=== PATIENT | female | born 1995 | race American Indian/Alaskan Native ===

== ENCOUNTER 2017-05-24 20:44 | Inpatient (IN) | payer BC ==
--- NOTE | 2017-05-24 22:16 | ED PDOC ---
HPI: Fever Fever Onset Was: 05/22/17 Have you had recent travel within the past 21 days to any of the following countries: [place], [place], [place] or [place]?: Yes Other Location:: [facility] Does Patient Have Hx Of Febrile Seizures: No Did The Patient Have A Seizure Today: No Symptoms Associated With Fever: Other (chills). denies: Vomiting, Diarrhea Additional Comments: 21 year old female with no pertinent medical history presents to the ED with complaints of a fever and chills that started 3x days ago. She reports that she recently travelled to the [facility] 10x days ago where she had liposuction and injections in her abdomen, buttocks, arms, and breasts. She reports taking antibiotics or the past 7x days. She denies having nausea, vomiting, chest pain, and shortness of breath. Past Medical History Reviewed: Historical Data, Nursing Documentation, Vital Signs Vital Signs: Last Vital Signs Temp 98.5 F 05/24/17 21:03 Pulse 97 H 05/24/17 21:03 Resp 18 05/24/17 21:03 BP 116/68 05/24/17 21:03 Pulse Ox 100 05/24/17 22:20 - Medical History PMH: No Chronic Diseases - Surgical History Other surgeries: liposuction, injections 10x days ago - Family History Family History: States: No Known Family Hx - Social History Alcohol: Social Drugs: Denies - Allergies Allergies/Adverse Reactions: Allergies Allergy/AdvReac Type Severity Reaction Status Date / Time No Known Allergies Allergy Verified 05/24/17 21:02 Review of Systems ROS Statement: Except As Marked, All Systems Reviewed And Found Negative Constitutional: Positive for: Fever, Chills Cardiovascular: Negative for: Chest Pain Respiratory: Negative for: Shortness of Breath Gastrointestinal: Negative for: Nausea, Vomiting, Abdominal Pain Physical Exam - Reviewed Nursing Documentation Reviewed: Yes Vital Signs Reviewed: Yes - Physical Exam Appears: Positive for: Well, Non-toxic, No Acute Distress Head Exam: Positive for: ATRAUMATIC, NORMOCEPHALIC Skin: Positive for: Normal Color, Warm, Dry Cardiovascular/Chest: Positive for: Regular Rate, Rhythm Respiratory: Positive for: Normal Breath Sounds Gastrointestinal/Abdominal: Positive for: Soft, Other (surgical sites healing. granulation of tissue to a few sites. no erythema, no abscess, no fluctuance, no induration.). Negative for: Tenderness Neurologic/Psych: Positive for: Alert, Oriented (3x) - Laboratory Results Result Diagrams: 05/24/17 22:20 05/24/17 22:20 - ECG O2 Sat by Pulse Oximetry: 100 (RA) Pulse Ox Interpretation: Normal Medical Decision Making Medical Decision Makin:12 Initial impression: fever in post-operative patient. Initial plan: * BMP * CBC * motrin tab 600mg PO * reevaluation 2300 Pt. w/ elevated WBC w/ neutrophilic predominance as well as anemia. Will admit to hospitalist service. Abx ordered. Scribe Attestation: Documented by Vianca Paredes, acting as a scribe for Todd Nunez MD. Provider Scribe Attestation: All medical record entries made by the Scribe were at my direction and personally dictated by me. I have reviewed the chart and agree that the record accurately reflects my personal performance of the history, physical exam, medical decision making, and the department course for this patient. I have also personally directed, reviewed, and agree with the discharge instructions and disposition. Disposition - Clinical Impression Clinical Impression: Fever, Leukocytosis, Anemia - Disposition Disposition Time: 23:00 Condition: STABLE
[2017-05-24 22:43] LABS: BASO % 0.2 % (0.0-2.0); EOS # 0.1 K/uL (0.0-0.7); EOS % 0.7 % (0.0-4.0); HEMATOCRIT 23.8 % (34.0-47.0); LYMPH # 1.8 K/uL (1.0-4.3); LYMPH % 9.5 % (20.0-40.0); MEAN CELL VOLUME 88.6 fl (81.0-99.0); MEAN CORPUSCULAR HEMOGLOBIN 29.5 pg (27.0-31.0); MEAN CORPUSCULAR HGB CONC 33.3 g/dL (33.0-37.0); MEAN PLATELET VOLUME 6.8 fl (7.2-11.7); MONO # 1.5 K/uL (0.0-0.8); MONO % 7.5 % (0.0-10.0); NEUT % 82.1 % (50.0-75.0); PLATELET COUNT 300 K/uL (130-400); RED CELL DISTRIBUTION WIDTH 14.3 % (11.5-14.5); WHITE BLOOD COUNT 19.5 K/uL (4.8-10.8)
[2017-05-24 22:49] LABS: BLOOD UREA NITROGEN 8 mg/dl (7-17); CALCIUM 8.4 mg/dL (8.4-10.2); CARBON DIOXIDE 26 mmol/L (22-30); CHLORIDE 101 mmol/L (98-107); GFR AFRICAN-AMERICAN > 60; GLUCOSE,RANDOM 95 mg/dL (65-105); POTASSIUM 3.8 MMOL/L (3.6-5.0); SODIUM 137 mmol/l (132-148)
[2017-05-24 23:10] LABS: EOSINOPHIL 1 % (0-7); NEUTROPHIL 84 % (42-75); REACTIVE LYMPHOCYTES 1 % (0-0); TOTAL CELLS COUNTED 100
[2017-05-24] MEDS ORDERED: Sodium Chloride 0.9% 1,000 ML IV STA (23:13)
[2017-05-24] MEDS ORDERED: Piperacillin/Tazobact 3.375 GM in Sodium Chloride 0.9% 100 ML IVPB STA (23:43)
--- NOTE | 2017-05-24 23:59 | CP.PCM.HP ---
History of Present Illness - History of Present Illness History of Present Illness: Fever, malaise HPI: This is a 21 y/o female with no medical conditions who comes in with fever/ malaise/n/v. Patient had gone to the [facility] just about 10 days ago, where she had plastic surgery performed, including liposuction and injections in her abdomen, buttocks, arms, and also had breasts implants. She was discharged on 7 days of LVQ post op, just as prophylaxis, not for infection. As far as she was aware, she had no complications during/after procedure in [place] No significant blood loss either as far as she knew, though she is anemic on presentation. She states her symptoms started about 3 days ago, and began to get worse. She denies any worsening pain/redness at any surgical site. However, she notes one small site on R hip which has opened up and had some bleeding. Denies any CP, SOB, cough or diarrhea. ROS: 14 systems reviewed, negative other than HPI MHx: None SHx: Plastic surgery -- liposuction, implants (various areas) Allergies: NKDA Medications: as per med rec Family Hx: No relevant findings Social Hx: Lives with family, no significant EtOH or tobacco Present on Admission - Present on Admission Any Indicators Present on Admission: No Past Patient History - Past Social History Alcohol: Social Drugs: Denies - PSYCHIATRIC Hx Substance Use: No - SURGICAL HISTORY Other/Comment: Lipo suction to b/l arms, buttocks and abdomen Meds Allergies/Adverse Reactions: Allergies Allergy/AdvReac Type Severity Reaction Status Date / Time No Known Allergies Allergy Verified 05/24/17 21:02 Physical Exam - Constitutional Appears: Toxic - Head Exam Head Exam: ATRAUMATIC, NORMOCEPHALIC - Eye Exam Eye Exam: EOMI, PERRL - ENT Exam ENT Exam: Mucous Membranes Dry - Respiratory Exam Respiratory Exam: Clear to Auscultation Bilateral, NORMAL BREATHING PATTERN - Cardiovascular Exam Cardiovascular Exam: Tachycardia, REGULAR RHYTHM, +S1, +S2 - GI/Abdominal Exam GI & Abdominal Exam: Normal Bowel Sounds, Soft - Extremities Exam Extremities exam: Positive for: full ROM Additional comments: R hip area with one small 2-3 cm wound with some bleeding, ? drainage - Neurological Exam Neurological exam: Alert, CN II-XII Intact, Oriented x3 - Psychiatric Exam Psychiatric exam: Normal Affect, Normal Mood - Skin Skin Exam: Dry, Warm Results - Vital Signs Recent Vital Signs: Last Vital Signs Temp 98.5 F 05/24/17 21:03 Pulse 97 H 05/24/17 21:03 Resp 18 05/24/17 21:03 BP 116/68 05/24/17 21:03 Pulse Ox 100 05/24/17 22:20 - Labs Result Diagrams: 05/24/17 22:20 05/24/17 22:20 Labs: Laboratory Results - last 24 hr 05/24/17 05/24/17 05/24/17 22:20 22:20 23:14 WBC 19.5 H RBC 2.69 L Hgb 7.9 L Hct 23.8 L MCV 88.6 MCH 29.5 MCHC 33.3 RDW 14.3 Plt Count 300 MPV 6.8 L Neut % (Auto) 82.1 H Lymph % (Auto) 9.5 L [place] % (Auto) 7.5 Eos % (Auto) 0.7 Baso % (Auto) 0.2 Neut # 16.0 H Lymph # 1.8 [place] # 1.5 H Eos # 0.1 Baso # 0.0 Neutrophils % (Manual) 84 H Band Neutrophils % 1 Lymphocytes % (Manual) 6 L Reactive Lymphs % 1 H Monocytes % (Manual) 7 Eosinophils % (Manual) 1 Platelet Estimate Normal Poikilocytosis (manual Slight Anisocytosis (manual) Slight Tear Drop Cells Slight Sodium 137 Potassium 3.8 Chloride 101 Carbon Dioxide 26 Anion Gap 13 BUN 8 Creatinine 0.7 Est GFR ( Amer) > 60 Est GFR (Non-Af Amer) > 60 Random Glucose 95 Lactic Acid 2.1 Calcium 8.4 - Imaging and Cardiology Chest x-ray Status: Image reviewed by me (b/l breast implants noted; no consolidation or effusion.) Assessment & Plan (1) Fever Assessment and Plan: 21 y/o with no med conditions but recent travel/plastic surgery presenting with likely sepsis, though no clearly obvious source aside from R hip wound. 1) Sepsis -Continue IV Zosyn 3.375 q6h; given ?wound infection post op, will start Vanco 1 g q12h IV as well -IVF -Tylenol for pain/fever -Zofran IV for n/w -f/u Cultures -If no improvement or worsening in condition, consider CT to image surgical sites for possible abscess 2) Anemia -- possibly blood loss from surgery vs. from menstrual period -Full anemia w/u ordered; Ferritin likely to be elevated due to current infection -Type and screen ordered 3) DVT PPx -- SCDs only for now Status: Acute (2) Anemia Status: Acute (3) DVT prophylaxis Status: Acute
[2017-05-25 00:25] LABS: RBC URINE 1 /hpf (0-3); URINE BACTERIA RARE (<OCC); URINE BILIRUBIN NEGATIVE (NEGATIVE); URINE BLOOD NEGATIVE (NEGATIVE); URINE COLOR STRAW (YELLOW); URINE GLUCOSE (UA) NEG (Normal); URINE KETONE NEGATIVE (NEGATIVE); URINE LEUKOCYTE ESTERASE NEG Leu/uL (Negative); URINE PROTEIN NEGATIVE (NEGATIVE); URINE UROBILINOGEN 0.2-1.0 mg/dL (0.2-1.0); WBC URINE < 1 /hpf (0-5)
[2017-05-25] MEDS: Sodium Chloride 0.9% 1,000 ML IV SCH ×5 (02:30→23:33)
[2017-05-25] MEDS ORDERED: Piperacill/Tazo 3.375gm in Dex 3.375 GM/50 ML BAG IVPB SCH (04:00)
[2017-05-25 06:15] LABS: HEMATOCRIT 21.4 % (34.0-47.0); MEAN CELL VOLUME 89.5 fl (81.0-99.0); MEAN CORPUSCULAR HEMOGLOBIN 29.8 pg (27.0-31.0); MEAN CORPUSCULAR HGB CONC 33.3 g/dL (33.0-37.0); WHITE BLOOD COUNT 17.4 K/uL (4.8-10.8)
[2017-05-25 06:22] LABS: BLOOD UREA NITROGEN 7 mg/dl (7-17); CALCIUM 8.1 mg/dL (8.4-10.2); CARBON DIOXIDE 27 mmol/L (22-30); CHLORIDE 106 mmol/L (98-107); GFR AFRICAN-AMERICAN > 60; GLUCOSE,RANDOM 122 mg/dL (65-105); SODIUM 140 mmol/l (132-148)
[2017-05-25] MEDS: Piperacill/Tazo 3.375gm in Dex 3.375 GM/50 ML BAG IVPB SCH ×4 (06:26→18:31)
[2017-05-25 06:28] LABS: IRON 12 ug/dL (37-170); RETIC% 5.3 % (0.5-1.5)
[2017-05-25 06:52] LABS: THYROID STIMULATING HORMONE 3.05 mIU/ML (0.46-4.68)
--- NOTE | 2017-05-25 09:27 | CP.PCM.PN ---
Subjective - Date & Time of Evaluation Date of Evaluation: 05/25/17 Time of Evaluation: 09:15 - Subjective Subjective: Pt remains febrile complains of right buttock pain sl discomfort at incision site of liposuction no CP no SOB no N/V no abd pain Objective - Vital Signs/Intake and Output Vital Signs (last 24 hours): Temp Pulse Resp BP Pulse Ox 100.5 F H 110 H 18 105/56 L 100 05/25/17 09:22 05/25/17 08:15 05/25/17 08:15 05/25/17 08:15 05/25/17 08:15 Intake and Output: 05/25/17 05/25/17 06:59 18:59 Intake Total 840 Balance 840 - Medications Medications: Current Medications Acetaminophen (Tylenol 325mg Tab) 650 mg PO Q6 PRN PRN Reason: Fever >100.4 F Last Admin: 05/25/17 09:22 Dose: 650 mg Acetaminophen (Tylenol 325mg Tab) 650 mg PO Q6 PRN PRN Reason: Pain, Mild (1-3) Vancomycin HCl 1 gm/ Sodium (Chloride) 250 mls @ 166.667 mls/hr IVPB Q12H [facility] Last Admin: 05/25/17 02:30 Dose: 166.667 mls/hr Sodium Chloride (Sodium Chloride 0.9%) 1,000 mls @ 100 mls/hr IV .Q10H [facility] Stop: 05/25/17 20:59 Last Admin: 05/25/17 02:30 Dose: 100 mls/hr Piperacillin Sod/Tazobactam Sod (Zosyn 3.375 Gm Iv Premix) 3.375 gm in 50 mls @ 50 mls/hr IVPB 0100,0700,1300,1900 [facility] Last Admin: 05/25/17 06:26 Dose: 50 mls/hr Ondansetron HCl (Zofran Inj) 4 mg IVP Q6 PRN PRN Reason: Nausea/Vomiting - Labs Labs: 05/25/17 05:00 05/25/17 05:00 - Constitutional Appears: No Acute Distress - Head Exam Head Exam: NORMAL INSPECTION, NORMOCEPHALIC - Eye Exam Eye Exam: EOMI, Normal appearance, PERRL Pupil Exam: NORMAL ACCOMODATION - ENT Exam ENT Exam: Mucous Membranes Moist, Normal External Ear Exam - Neck Exam Neck Exam: Full ROM. absent: Meningismus - Respiratory Exam Respiratory Exam: NORMAL BREATHING PATTERN. absent: Respiratory Distress - Cardiovascular Exam Cardiovascular Exam: Tachycardia, REGULAR RHYTHM, +S1, +S2 - GI/Abdominal Exam GI & Abdominal Exam: Soft, Normal Bowel Sounds. absent: Tenderness - Extremities Exam Extremities Exam: Full ROM, Normal Capillary Refill. absent: Calf Tenderness, Pedal Edema - Back Exam Back Exam: Full ROM, NORMAL INSPECTION. absent: CVA tenderness (L), CVA tenderness (R) Additional comments: tenderness , induration right buttock extending to upper thigh - Neurological Exam Neurological Exam: Alert, Awake, CN II-XII Intact, Normal Gait, Oriented x3 Neuro motor strength exam: Left Upper Extremity: 5, Right Upper Extremity: 5, Left Lower Extremity: 5, Right Lower Extremity: 5 - Psychiatric Exam Psychiatric exam: Normal Affect, Normal Mood - Skin Skin Exam: Dry, Normal Color, Warm Assessment and Plan (1) Cellulitis of buttock, right Status: Acute (2) Postoperative anemia due to acute blood loss Status: Acute (3) DVT prophylaxis Status: Acute - Assessment and Plan (Free Text) Assessment: 21 y/o lady , s/p recent Liposuction and Buttock Fat Transfer procedure and Breast augmentation done in the [place] 10 days ago , came bec of fever and generalized malaise. (1) Sepsis sec to Cellulitis of buttock, right Status: Acute Pt came in febrile, tachycardic, WBC CT =19k IVF hydration Pt started on IV Zosyn and Vanco ID consult: Dr Zambrano CT of pelvis : findings consistent with cellulitis, no definite abscess (2) Postoperative anemia due to acute blood loss Status: Acute Hgb=7.1 will transfuse 1 unit PRBC will also given Iron supplement (3) DVT prophylaxis Status: Acute Lovenox
[2017-05-25] MEDS ORDERED: Iohexol 300 100 ML IJ ONE (10:13)
[2017-05-25] MEDS ORDERED: Sodium Chloride 0.9% 50 ML IV ONE (10:13)
--- NOTE | 2017-05-25 11:11 | CT ---
PROCEDURE: CT pelvis HISTORY: r/o abscess, post fat implantation buttocks, COMPARISON: Not available TECHNIQUE: 2.5 mm contiguous axial sections were acquired through the pelvis. Contrast administered: 95 cc Omnipaque 300 Total exam DLP: 1655.32 mGy-cm FINDINGS: There are at post implant seen within the gluteus ugo muscle bilaterally. The gluteus medius and minimus muscles are unremarkable. There is ill-defined fluid attenuation within the deep subcutaneous fat of the right medial gluteus region extending to the proximal medial right thigh. There is no carmen localized abscess identified. There is thickening of the overlying skin. Findings are consistent with cellulitis without evidence of carmen abscess at this time. At the level of the iliac crests, there is band-like low attenuation within the subcutaneous soft tissues posteriorly extending to the flanks bilaterally, right greater than left. There is also some stranding of the subcutaneous soft tissue anteriorly, across the entire width. These findings most likely represent scar tissue of indeterminate origin. Cannot rule out inflammatory process, however. Please correlate clinically. The internal contents of the pelvis are grossly normal. The uterus and urinary bladder are normal in appearance. There is no ascites. There is no lymphadenopathy. No abnormal bowel loops are identified. IMPRESSION: No evidence of abscess. Cellulitis right gluteal region medially extending to medial right thigh. Very small ill-defined fluid collections throughout the subcutaneous fat in the affected region. Fatty implants seen within gluteus ugo muscle bilaterally. Bandlike low-attenuation across the width of the posterior subcutaneous soft tissues immediately beneath the skin at the level of the iliac crests, possibly an incision site. This is greater on the right side than on the left side. There is also mild stranding of the subcutaneous fat anteriorly across the entire width, again at the level of the iliac crests. Please correlate clinically.
--- NOTE | 2017-05-25 12:21 | CP.PCM.CON ---
History of Present Illness - History of Present Illness History of Present Illness: 21 y/o female with no medical conditions who comes in with fever/malaise/n/v. Patient had gone to the [facility] just about 10 days ago, where she had plastic surgery performed, including liposuction and injections in her abdomen, buttocks, arms, and also had breasts implants. She was discharged on 7 days of LVQ post op, just as prophylaxis, not for infection. As far as she was aware, she had no complications during/after procedure in [place]. No significant blood loss either as far as she knew, though she is anemic on presentation. She states her symptoms started about 3 days ago, and began to get worse. She denies any worsening pain/redness at any surgical site. However, she notes one small site on R hip which has opened up and had some bleeding. Denies any CP, SOB, cough or diarrhea. SHx: Plastic surgery -- liposuction, implants (various areas) Allergies: NKDA Family Hx: No relevant findings Social Hx: Lives with family, no significant EtOH or tobacco Review of Systems - Constitutional Constitutional: As Per HPI, Chills, Weakness - EENT Eyes: absent: As Per HPI, Blind Spots, Blurred Vision, Change in Vision, Decreased Night Vision, Diplopia, Discharge, Dry Eye, Exophthalmos, Floaters, Irritation, Itchy Eyes, Loss of Peripheral Vision, Pain, Photophobia, Requires Corrective Lenses, Sees Flashes, Spots in Vision, Tunnel Vision, Other Visual Disturbances, Loss of Vision, Other Ears: absent: As Per HPI, Decreased Hearing, Ear Discharge, Ear Pain, Tinnitus, Abnormal Hearing, Disequilibrium, Dizziness, Other Nose/Mouth/Throat: absent: As Per HPI, Epistaxis, Nasal Congestion, Nasal Discharge, Nasal Obstruction, Nasal Trauma, Nose Pain, Post Nasal Drip, Sinus Pain, Sinus Pressure, Bleeding Gums, Change in Voice, Dental Pain, Dry Mouth, Dysphagia, Halitosis, Hoarsness, Lip Swelling, Mouth Lesions, Mouth Pain, Odynophagia, Sore Throat, Throat Swelling, Tongue Swelling, Facial Pain, Neck Pain, Neck Mass, Other - Breasts Breasts: absent: As Per HPI, Change in Shape, Mass, Pain, Nipple Discharge, Nipple Inversion, Skin Changes, Swelling, Other - Cardiovascular Cardiovascular: absent: As Per HPI, Acrocyanosis, Chest Pain, Chest Pain at Rest , Chest Pain with Activity, Claudication, Diaphoresis, Dyspnea, Dyspnea on Exertion, Edema, Irregular Heart Rhythm, Pain Radiating to Arm/Neck/Jaw, Leg Edema, Leg Ulcers, Lightheadedness, Orthopnea, Palpitations, Paroxysmal Nocturnal Dyspnea, Pedal Edema, Radiating Pain, Rapid Heart Rate, Slow Heart Rate, Syncope, Other - Respiratory Respiratory: absent: As Per HPI, Cough, Dyspnea, Hemoptysis, Dyspnea on Exertion , Wheezing, Snoring, Stridor, Pain on Inspiration, Chest Congestion, Excessive Mucous Production, Change in Mucous Color, Pain with Coughing, Other - Gastrointestinal Gastrointestinal: absent: As Per HPI, Abdominal Pain, Belching, Bloating, Change in Bowel Habits, Change in Stool Character, Coffee Ground Emesis, Constipation, Cramping, Diarrhea, Dyspepsia, Dysphagia, Early Satiety, Excessive Flatus, Fecal Incontinence, Heartburn, Hematemesis, Hematochezia, Loose Stools, Melena, Nausea, Odynophagia, Temesmus, Vomiting, Other - Genitourinary Genitourinary: absent: As Per HPI, Change in Urinary Stream, Difficulty Urinating, Dysuria, Flank Pain, Hematuria, Pyuria, Nocturia, Urinary Incontinence, Urinary Frequency, Urinary Hesitance, Urinary Urgency, Voiding Freq/Small Amts, Freq UTI, Hx Renal/Bladder Calculi, Hx /Renal Surgery, Bladder Distension, Other - Reproductive: Female Reproductive:Female: absent: As Per HPI, Amenorrhea, Amenorrhea/ Control, Currently Menstual, Cycle <21 Days, Cycle >35 Days, Cycle Variable, Menses 1-7 Days, Menses >/= 8 Days, Menses Variable, Cycle > 4 Weeks Between, No Menses for 6 Months, Heavy Menses, Light Menses, Normal Menses, Spotting Between Cycles , S/P Hysterectomy, Menopausal, Post Menopausal, Premenarche, Abnormal Vaginal Bleeding, Dysmenorrhea, Dyspareunia, Genital Lesions, Genital Pruritis, Pelvic Pain, Prolapse Symptoms, Sexual Dysfunction, Vaginal Discharge, Vaginal Dryness , Vaginal Odor, Vaginal Pruritis, Other - Menstruation Menstruation: absent: As Per HPI, Amenorrhea, Amenorrhea/ Control, Currently Menstual, Cycle <21 Days, Cycle >35 Days, Cycle Variable, Menses 1-7 Days, Menses >/= 8 Days, Menses Variable, Cycle > 4 Weeks Between, No Menses for 6 Months, Heavy Menses, Light Menses, Normal Menses, Spotting Between Cycles , S/P Hysterectomy, Menopausal, Post Menopausal, Premenarche, Abnormal Vaginal Bleeding, Dysmenorrhea, Other - Musculoskeletal Musculoskeletal: As Per HPI - Integumentary Integumentary: As Per HPI - Neurological Neurological: absent: As Per HPI, Abnormal Gait, Abnormal Hearing, Abnormal Movements, Abnormal Speech, Behavioral Changes, Burning Sensations, Confusion, Convulsions, Disequilibrium, Dizziness, Numbness, Focal Weakness, Frequent Falls , Headaches, Lack of Coordination, Loss of Vision, Memory Loss, Paresthesias, Radicular Pain, Restless Legs, Sensory Deficit, Syncope, Tingling, Tremor, Vertigo, Weakness, Other Visual Disturbances, Other - Psychiatric Psychiatric: absent: As Per HPI, Abnormal Sleep Pattern, Anhedonia, Anxiety, Auditory Hallucinations, Behavioral Changes, Change in Appetite, Change in Libido, Confusion, Depression, Difficulty Concentrating, Hallucinations, Homicidal Ideation, Hopelessness, Irritability, Memory Loss, Mood Swings, Panic Attacks, Paranoia, Suicidal Ideation, Visual Hallucinations, Tactile Hallucinations, Other - Endocrine Endocrine: absent: As Per HPI, Change in Body Appearance, Change in Libido, Cold Intolorance, Deepening of Voice, Excessive Sweating, Fatigue, Flushing, Heat Intolorance, Increase in Ring/Shoe/Hat Size, Palpitations, Polydipsia, Polyphagia, Polyuria, Other - Hematologic/Lymphatic Hematologic: absent: As Per HPI, Easy Bleeding, Easy Bruising, Lymphadenopathy, Other Past Patient History - Past Medical History & Family History Past Medical History?: No - Past Social History Smoking Status: Never Smoked - HEMATOLOGICAL/ONCOLOGICAL Hx AIDS: No Hx Human Immunodeficiency Virus (HIV): No - MUSCULOSKELETAL/RHEUMATOLOGICAL Hx Falls: No - PSYCHIATRIC Hx Substance Use: No - SURGICAL HISTORY Hx Surgeries: Yes Other/Comment: Lipo suction to b/l arms, buttocks and abdomen - ANESTHESIA Hx Anesthesia: Yes Hx Anesthesia Reactions: No Hx Malignant Hyperthermia: No Meds Allergies/Adverse Reactions: Allergies Allergy/AdvReac Type Severity Reaction Status Date / Time No Known Allergies Allergy Verified 05/24/17 21:02 - Medications Medications: Current Medications Acetaminophen (Tylenol 325mg Tab) 650 mg PO Q6 PRN PRN Reason: Fever >100.4 F Last Admin: 05/25/17 09:22 Dose: 650 mg Acetaminophen (Tylenol 325mg Tab) 650 mg PO Q6 PRN PRN Reason: Pain, Mild (1-3) Vancomycin HCl 1 gm/ Sodium (Chloride) 250 mls @ 166.667 mls/hr IVPB Q12H [facility] Last Admin: 05/25/17 02:30 Dose: 166.667 mls/hr Sodium Chloride (Sodium Chloride 0.9%) 1,000 mls @ 100 mls/hr IV .Q10H [facility] Stop: 05/25/17 20:59 Last Admin: 05/25/17 02:30 Dose: 100 mls/hr Piperacillin Sod/Tazobactam Sod (Zosyn 3.375 Gm Iv Premix) 3.375 gm in 50 mls @ 50 mls/hr IVPB 0100,0700,1300,1900 [facility] Last Admin: 05/25/17 06:26 Dose: 50 mls/hr Ondansetron HCl (Zofran Inj) 4 mg IVP Q6 PRN PRN Reason: Nausea/Vomiting Physical Exam - Constitutional Appears: Toxic - Head Exam Head Exam: NORMOCEPHALIC - Eye Exam Eye Exam: PERRL Pupil Exam: NORMAL ACCOMODATION - ENT Exam ENT Exam: Mucous Membranes Moist - Neck Exam Neck exam: Positive for: Normal Inspection - Respiratory Exam Respiratory Exam: Clear to Auscultation Bilateral, NORMAL BREATHING PATTERN - Cardiovascular Exam Cardiovascular Exam: REGULAR RHYTHM, +S1, +S2 - GI/Abdominal Exam GI & Abdominal Exam: Normal Bowel Sounds, Soft. absent: Tenderness - Rectal Exam Rectal Exam: Deferred - Exam Exam: NORMAL INSPECTION - Extremities Exam Extremities exam: Positive for: normal inspection - Back Exam Back exam: absent: CVA tenderness (L), CVA tenderness (R) - Neurological Exam Neurological exam: Alert, CN II-XII Intact, Oriented x3 - Psychiatric Exam Psychiatric exam: Anxious - Skin Skin Exam: Dry Additional comments: areas of induration/ tenderness over inner buttock area bilat Results - Vital Signs Recent Vital Signs: Last Vital Signs Temp 99.3 F 05/25/17 12:03 Pulse 110 H 05/25/17 12:03 Resp 18 05/25/17 12:03 BP 110/64 05/25/17 12:03 Pulse Ox 100 05/25/17 12:03 - Labs Result Diagrams: 05/25/17 19:14 05/25/17 05:00 Labs: Laboratory Results - last 24 hr 05/25/17 09:25 Blood Type O NEGATIVE Antibody Screen Negative Crossmatch See Detail BBK History Checked Patient has bt Assessment & Plan (1) Anemia Status: Acute (2) Cellulitis of buttock, right Status: Acute (3) Fever Status: Acute (4) Leukocytosis Status: Acute (5) Postoperative anemia due to acute blood loss Status: Acute - Assessment and Plan (Free Text) Assessment: severe cellulitis r/o infected hematoma r/o staph, strep , anaerobes , Mycobacterium abscessus no abscess as per CT may need surgical drainage if no improvement in 24-48 h agree with Vanco/ zosyn
--- NOTE | 2017-05-25 14:06 | RAD ---
HISTORY: fever, leukocytosis COMPARISON: No prior. TECHNIQUE: Chest PA and lateral FINDINGS: LUNGS: No active pulmonary disease. PLEURA: No significant pleural effusion identified. No pneumothorax apparent. CARDIOVASCULAR: Normal. OSSEOUS STRUCTURES: No significant abnormalities. VISUALIZED UPPER ABDOMEN: Normal. OTHER FINDINGS: None. IMPRESSION: No active disease.
[2017-05-25] MEDS ORDERED: Oxycodone/Acetaminophen 5/325 mg Tab PO PRN (15:29)
[2017-05-25] MEDS: HYDROmorphone 0.5 mg/0.5 ml ISec IVP PRN ×2 (16:12→20:40)
[2017-05-25 19:27] LABS: HEMATOCRIT 23.2 % (34.0-47.0); MEAN CELL VOLUME 87.9 fl (81.0-99.0); MEAN CORPUSCULAR HEMOGLOBIN 29.5 pg (27.0-31.0); MEAN CORPUSCULAR HGB CONC 33.6 g/dL (33.0-37.0); RED CELL DISTRIBUTION WIDTH 14.1 % (11.5-14.5); WHITE BLOOD COUNT 19.5 K/uL (4.8-10.8)
[2017-05-26] MEDS: Piperacill/Tazo 3.375gm in Dex 3.375 GM/50 ML BAG IVPB SCH ×4 (00:23→18:22)
[2017-05-26] MEDS: HYDROmorphone 0.5 mg/0.5 ml ISec IVP PRN ×5 (00:29→21:48)
[2017-05-26 06:32] LABS: BASO % 0.2 % (0.0-2.0); EOS # 0.2 K/uL (0.0-0.7); HEMATOCRIT 23.4 % (34.0-47.0); LYMPH # 1.4 K/uL (1.0-4.3); LYMPH % 8.3 % (20.0-40.0); MEAN CELL VOLUME 88.4 fl (81.0-99.0); MEAN CORPUSCULAR HEMOGLOBIN 29.8 pg (27.0-31.0); MEAN CORPUSCULAR HGB CONC 33.7 g/dL (33.0-37.0); MEAN PLATELET VOLUME 7.1 fl (7.2-11.7); MONO # 1.6 K/uL (0.0-0.8); MONO % 9.8 % (0.0-10.0); NEUT # 13.4 K/uL (1.8-7.0); NEUT % 80.7 % (50.0-75.0); RED CELL DISTRIBUTION WIDTH 14.1 % (11.5-14.5); WHITE BLOOD COUNT 16.6 K/uL (4.8-10.8)
[2017-05-26 06:35] LABS: BLOOD UREA NITROGEN 5 mg/dl (7-17); CALCIUM 8.2 mg/dL (8.4-10.2); CARBON DIOXIDE 29 mmol/L (22-30); CHLORIDE 104 mmol/L (98-107); GFR AFRICAN-AMERICAN > 60; GLUCOSE,RANDOM 110 mg/dL (65-105); SODIUM 139 mmol/l (132-148)
[2017-05-26] MEDS: Enoxaparin 40 mg Syringe SC SCH (08:36)
--- NOTE | 2017-05-26 10:21 | CP.PCM.PN ---
Subjective - Date & Time of Evaluation Date of Evaluation: 05/26/17 Time of Evaluation: 10:00 - Subjective Subjective: Still febrile but lower grade has sl headache when she gets pain and fever no neck rigidity no Focal neuro deficit no CP no SOB no abd pain + right buttock pain Objective - Vital Signs/Intake and Output Vital Signs (last 24 hours): Temp Pulse Resp BP Pulse Ox 100.4 F H 111 H 18 104/61 99 05/26/17 09:00 05/26/17 09:00 05/26/17 09:00 05/26/17 09:00 05/26/17 09:00 - Medications Medications: Current Medications Acetaminophen (Tylenol 325mg Tab) 650 mg PO Q6 PRN PRN Reason: Fever >100.4 F Last Admin: 05/25/17 23:27 Dose: 650 mg Acetaminophen (Tylenol 325mg Tab) 650 mg PO Q6 PRN PRN Reason: Pain, Mild (1-3) Last Admin: 05/25/17 13:34 Dose: 650 mg Enoxaparin Sodium (Lovenox) 40 mg SC DAILY [facility] PRN Reason: Protocol Last Admin: 05/26/17 08:36 Dose: 40 mg Hydromorphone HCl (Dilaudid) 0.5 mg IVP Q4 PRN PRN Reason: Pain, severe (8-10) Last Admin: 05/26/17 08:24 Dose: 0.5 mg Vancomycin HCl 1 gm/ Sodium (Chloride) 250 mls @ 166.667 mls/hr IVPB Q12H [facility] Last Admin: 05/26/17 01:39 Dose: 166.667 mls/hr Piperacillin Sod/Tazobactam Sod (Zosyn 3.375 Gm Iv Premix) 3.375 gm in 50 mls @ 50 mls/hr IVPB 0100,0700,1300,1900 [facility] Last Admin: 05/26/17 08:30 Dose: 50 mls/hr Ondansetron HCl (Zofran Inj) 4 mg IVP Q6 PRN PRN Reason: Nausea/Vomiting Oxycodone/Acetaminophen (Percocet 5/325 Mg Tab) 1 tab PO Q4 PRN PRN Reason: Pain, moderate (4-7) Stop: 05/28/17 15:30 Last Admin: 07/24/17 23:32 Dose: 1 tab - Labs Labs: 05/26/17 05:00 05/26/17 05:00 - Constitutional Appears: No Acute Distress - Head Exam Head Exam: NORMAL INSPECTION, NORMOCEPHALIC - Eye Exam Eye Exam: EOMI, Normal appearance, PERRL Pupil Exam: NORMAL ACCOMODATION - ENT Exam ENT Exam: Mucous Membranes Moist, Normal External Ear Exam - Neck Exam Neck Exam: Full ROM. absent: Meningismus no rigidity - Respiratory Exam Respiratory Exam: NORMAL BREATHING PATTERN. absent: Respiratory Distress - Cardiovascular Exam Cardiovascular Exam: Tachycardia, REGULAR RHYTHM, +S1, +S2 Breast examined : no tendrness, no signs of ifection - GI/Abdominal Exam GI & Abdominal Exam: Soft, Normal Bowel Sounds. absent: Tenderness no discharge on sites where liposuction trocar was inserted - Extremities Exam Extremities Exam: Full ROM, Normal Capillary Refill. absent: Calf Tenderness, Pedal Edema - Back Exam Back Exam: Full ROM, NORMAL INSPECTION. absent: CVA tenderness (L), CVA tenderness (R) Additional comments: tenderness , induration right buttock extending to upper thigh - Neurological Exam Neurological Exam: Alert, Awake, CN II-XII Intact, Normal Gait, Oriented x3 Neuro motor strength exam: Left Upper Extremity: 5, Right Upper Extremity: 5, Left Lower Extremity: 5, Right Lower Extremity: 5 - Psychiatric Exam Psychiatric exam: Normal Affect, Normal Mood - Skin Skin Exam: Dry, Normal Color, Warm Assessment and Plan (1) Cellulitis of buttock, right Status: Acute (2) Postoperative anemia due to acute blood loss Status: Acute (3) DVT prophylaxis Status: Acute - Assessment and Plan (Free Text) Assessment: 21 y/o lady , s/p recent Liposuction and Buttock Fat Transfer procedure and Breast augmentation done in the [place] 10 days ago , came bec of fever and generalized malaise. (1) Sepsis ( POA) sec to Cellulitis of buttock, right , post surgical infection Status: Acute Pt had a hx of Li[osuction and Fat transfer to Butt[place] done in [place] Pt came in febrile, tachycardic, WBC CT =19k IVF hydration Pt started on IV Zosyn and Vanco ID consult: Dr Zambrano CT of pelvis : findings consistent with cellulitis, no definite abscess will rpt imaging if fever persist WBC ct sl better today and fever lower grade (2) Postoperative anemia due to acute blood loss Status: Acute Hgb=7.1 transfused 1 unit PRBC- Hgb now 7.9 start IV venofer x 3 days (3) DVT prophylaxis Status: Acute Lovenox
--- NOTE | 2017-05-26 15:21 | PQF GENQUE ---
Dr. Busby, Sepsis due to Cellulitus: occurred in the post procedural infection versus Sepsis due to Cellulitus: a complication of surgery? etc. OR: Disagree OR: Unable to determine OR: Other explanation of clinical finding 05/25 Attending progress note: 21 y/o lady , s/p recent Liposuction and Buttock Fat Transfer procedure and Breast augmentation done in the [place] 10 days ago , came bec of fever and generalized malaise. (1) Sepsis sec to Cellulitis of buttock, right Status: Acute Pt came in febrile, tachycardic, WBC CT =19k IVF hydration Pt started on IV Zosyn and Vanco ID consult: Dr Zambrano CT of pelvis : findings consistent with cellulitis, no definite abscess This form is a permanent part of the medical record Clarification of your documentation is requested to better reflect the severity of illness and intensity of treatment of your patient. Indicators present [] Specify: [] [] Specify: [] [] Specify: [] [] Specify: [] Location in the medical record that reflects the above clinical findings: [] Treatment Provided: [] PHYSICIAN'S RESPONSE Sepsis sec to Buttock Cellulitis POA, post surgical infection Based on your medical judgment of the clinical indicators outlined above please clarify the following: [] Practitioner response [] If unable to determine, please check the box, sign and date. Present On Admission (POA) Indicator: [] Present at the time of admission [] Not present at the time of admission [] Clinically Undetermined In responding to this query, please exercise your independent professional judgment. The fact that a question is asked does not imply that any particular answer is desired or expected. Thank you for your clarification on this documentation. If you have any questions please call. * Thank you, Yudelka Ngo RN BSN ext. #[phone] MTDD
[2017-05-27] MEDS ORDERED: Piperacillin/Tazobact 3.375 gm Inj IVPB ONE (01:00)
[2017-05-27] MEDS: Piperacill/Tazo 3.375gm in Dex 3.375 GM/50 ML BAG IVPB SCH ×3 (01:00→12:35)
[2017-05-27] MEDS: HYDROmorphone 0.5 mg/0.5 ml ISec IVP PRN (01:50)
[2017-05-27 06:45] LABS: BASO % 0.2 % (0.0-2.0); EOS # 0.2 K/uL (0.0-0.7); EOS % 1.1 % (0.0-4.0); HEMATOCRIT 22.1 % (34.0-47.0); LYMPH # 0.7 K/uL (1.0-4.3); LYMPH % 4.8 % (20.0-40.0); MEAN CELL VOLUME 88.3 fl (81.0-99.0); MEAN CORPUSCULAR HEMOGLOBIN 29.6 pg (27.0-31.0); MEAN CORPUSCULAR HGB CONC 33.5 g/dL (33.0-37.0); MEAN PLATELET VOLUME 7.2 fl (7.2-11.7); MONO # 1.6 K/uL (0.0-0.8); MONO % 11.2 % (0.0-10.0); NEUT # 11.9 K/uL (1.8-7.0); NEUT % 82.7 % (50.0-75.0); RED CELL DISTRIBUTION WIDTH 13.9 % (11.5-14.5); WHITE BLOOD COUNT 14.4 K/uL (4.8-10.8)
[2017-05-27 07:02] LABS: ALKALINE PHOSPHATASE 94 U/L (38-126); ALT/SGPT 45 U/L (9-52); AST/SGOT 20 U/L (14-36); BILIRUBIN,TOTAL 0.6 mg/dl (0.2-1.3); BLOOD UREA NITROGEN 5 mg/dl (7-17); CALCIUM 8.3 mg/dL (8.4-10.2); CARBON DIOXIDE 29 mmol/L (22-30); CHLORIDE 103 mmol/L (98-107); GFR AFRICAN-AMERICAN > 60; GLUCOSE,RANDOM 132 mg/dL (65-105); POTASSIUM 3.8 MMOL/L (3.6-5.0); SODIUM 140 mmol/l (132-148); TOTAL PROTEIN 5.9 G/DL (6.3-8.2)
[2017-05-27 07:25] LABS: ALB/GLOB RATIO 0.8 (1.0-2.1)
[2017-05-27] MEDS: Enoxaparin 40 mg Syringe SC SCH (08:46)
--- NOTE | 2017-05-27 14:08 | CP.PCM.PN ---
Subjective - Date & Time of Evaluation Date of Evaluation: 05/27/17 Time of Evaluation: 08:00 - Subjective Subjective: FEVER + SURGERY ON BOARD ADD MERREM MAY NEED OR Objective - Vital Signs/Intake and Output Vital Signs (last 24 hours): Temp Pulse Resp BP Pulse Ox 99.2 F 108 H 18 109/65 99 05/27/17 12:04 05/27/17 12:04 05/27/17 12:04 05/27/17 12:04 05/27/17 12:04 - Medications Medications: Current Medications Acetaminophen (Tylenol 325mg Tab) 650 mg PO Q6 PRN PRN Reason: Fever >100.4 F Last Admin: 05/27/17 08:42 Dose: 650 mg Acetaminophen (Tylenol 325mg Tab) 650 mg PO Q6 PRN PRN Reason: Pain, Mild (1-3) Last Admin: 05/25/17 13:34 Dose: 650 mg Enoxaparin Sodium (Lovenox) 40 mg SC DAILY [facility] PRN Reason: Protocol Last Admin: 05/27/17 08:46 Dose: 40 mg Famotidine (Pepcid) 20 mg PO BID [facility] Last Admin: 05/27/17 08:46 Dose: 20 mg Hydromorphone HCl (Dilaudid) 0.5 mg IVP Q4 PRN PRN Reason: Pain, severe (8-10) Last Admin: 05/27/17 10:07 Dose: 0.5 mg Vancomycin HCl 1 gm/ Sodium (Chloride) 250 mls @ 166.667 mls/hr IVPB Q12H [facility] Last Admin: 05/27/17 12:35 Dose: 166.667 mls/hr Iron Sucrose 100 mg/ Sodium (Chloride) 105 mls @ 105 mls/hr IVPB DAILY [facility] Stop: 05/28/17 09:59 Last Admin: 05/27/17 12:35 Dose: 105 mls/hr Meropenem 1 gm/ Sodium (Chloride) 100 mls @ 100 mls/hr IVPB Q8 [facility] Ibuprofen (Motrin Tab) 600 mg PO Q6 PRN PRN Reason: Headache Last Admin: 05/26/17 20:02 Dose: 600 mg Ondansetron HCl (Zofran Inj) 4 mg IVP Q6 PRN PRN Reason: Nausea/Vomiting Oxycodone/Acetaminophen (Percocet 5/325 Mg Tab) 1 tab PO Q4 PRN PRN Reason: Pain, moderate (4-7) Stop: 05/28/17 15:30 Last Admin: 05/25/17 23:32 Dose: 1 tab Zolpidem Tartrate (Ambien) 5 mg PO HS PRN PRN Reason: Sleep Last Admin: 05/26/17 21:00 Dose: 5 mg - Labs Labs: 05/27/17 05:00 05/27/17 05:00 - Constitutional Appears: Toxic - Head Exam Head Exam: NORMOCEPHALIC - Eye Exam Eye Exam: absent: Scleral icterus - ENT Exam ENT Exam: Mucous Membranes Dry - Neck Exam Neck Exam: absent: Lymphadenopathy - Respiratory Exam Respiratory Exam: Decreased Breath Sounds, Clear to Ausculation Bilateral - Cardiovascular Exam Cardiovascular Exam: REGULAR RHYTHM, +S1, +S2 - GI/Abdominal Exam GI & Abdominal Exam: Distended, Soft Assessment and Plan (1) Anemia Status: Acute (2) Cellulitis of buttock, right Status: Acute (3) Fever Status: Acute (4) Leukocytosis Status: Acute (5) Postoperative anemia due to acute blood loss Status: Acute
--- NOTE | 2017-05-27 15:55 | CP.PCM.CON ---
History of Present Illness - History of Present Illness History of Present Illness: PLASTIC SURGERY CONSULT FOR DR. VARGAS azalia Arce with no significant PMHx who presented to the [place] ED with fever, chills, malaise, and pain in her right gluteal region after plastic surgery in the [place] on 05/14/17. She had liposuction from her bilateral arms and abdomen and a emirati butt lift. After her surgery, she spent 2 days in the hospital and then went to a rehab facility from May 16-. At that time, she took the full course of Levaquin which was given to her post op for prophylaxis. [place] the [place] on the . On the , she began having fever, chills, sweats, generalized weakness, and pain in her right gluteal region. She presented to the ED on 05/24. She was found to be tachycardic with leukocytosis WBC 19.5 and anemic Hgb 7.9. The next day, her Hgb went down to 7.1 and she was transfused 1 unit PRBC and given Iron infusions. She does not report any history of fibroids, heavy periods, blood in her stool, etc. Her last period was 05/17. Since her admission, she has continued to have fevers with the highest temp being 102.9 and she has continued to be tachycardic, up to 140. She is currently on Merrem, Zosyn, and Vancomycin per infectious disease. She also reports MATTA, dizziness but has refused head CT which was ordered. She also reports SOB and weakness when ambulating to the bathroom. She denies calf pain or tenderness. She states that her abdomen is swollen because she has not been wearing the compression garment she was given in the [place] since she has been here in the hospital. She denies nausea or vomiting. She has constipation. She denies chest pain. PMHx: none Surgeries: Liposuction with [place] butt lift on 05/[address] Jigar Ridley ( number on [facility]) Allergies: none Social history: no etoh in 2 months, previously social etoh, social hookah, no cigarette smoking Fam hx: no family history of blood clots Review of Systems - Review of Systems All systems: reviewed and no additional remarkable complaints except (as per HPI ) Past Patient History - Past Medical History & Family History Past Medical History?: No - Past Social History Smoking Status: Never Smoked - HEMATOLOGICAL/ONCOLOGICAL Hx AIDS: No Hx Human Immunodeficiency Virus (HIV): No - MUSCULOSKELETAL/RHEUMATOLOGICAL Hx Falls: No - PSYCHIATRIC Hx Substance Use: No - SURGICAL HISTORY Hx Surgeries: Yes Other/Comment: Lipo suction to b/l arms, buttocks and abdomen - ANESTHESIA Hx Anesthesia: Yes Hx Anesthesia Reactions: No Hx Malignant Hyperthermia: No Meds Allergies/Adverse Reactions: Allergies Allergy/AdvReac Type Severity Reaction Status Date / Time No Known Allergies Allergy Verified 05/24/17 21:02 - Medications Medications: Current Medications Acetaminophen (Tylenol 325mg Tab) 650 mg PO Q6 PRN PRN Reason: Fever >100.4 F Last Admin: 05/27/17 08:42 Dose: 650 mg Acetaminophen (Tylenol 325mg Tab) 650 mg PO Q6 PRN PRN Reason: Pain, Mild (1-3) Last Admin: 05/25/17 13:34 Dose: 650 mg Enoxaparin Sodium (Lovenox) 40 mg SC DAILY [facility] PRN Reason: Protocol Last Admin: 05/27/17 08:46 Dose: 40 mg Famotidine (Pepcid) 20 mg PO BID [facility] Last Admin: 05/27/17 08:46 Dose: 20 mg Hydromorphone HCl (Dilaudid) 0.5 mg IVP Q4 PRN PRN Reason: Pain, severe (8-10) Last Admin: 05/27/17 14:15 Dose: 0.5 mg Vancomycin HCl 1 gm/ Sodium (Chloride) 250 mls @ 166.667 mls/hr IVPB Q12H [facility] Last Admin: 05/27/17 12:35 Dose: 166.667 mls/hr Iron Sucrose 100 mg/ Sodium (Chloride) 105 mls @ 105 mls/hr IVPB DAILY [facility] Stop: 05/28/17 09:59 Last Admin: 05/27/17 12:35 Dose: 105 mls/hr Meropenem 1 gm/ Sodium (Chloride) 100 mls @ 100 mls/hr IVPB Q8 [facility] Ibuprofen (Motrin Tab) 600 mg PO Q6 PRN PRN Reason: Headache Last Admin: 05/27/17 14:11 Dose: 600 mg Ondansetron HCl (Zofran Inj) 4 mg IVP Q6 PRN PRN Reason: Nausea/Vomiting Oxycodone/Acetaminophen (Percocet 5/325 Mg Tab) 1 tab PO Q4 PRN PRN Reason: Pain, moderate (4-7) Stop: 05/28/17 15:30 Last Admin: 05/25/17 23:32 Dose: 1 tab Zolpidem Tartrate (Ambien) 5 mg PO HS PRN PRN Reason: Sleep Last Admin: 05/26/17 21:00 Dose: 5 mg Physical Exam - Constitutional Appears: Toxic, No Acute Distress - Respiratory Exam Respiratory Exam: NORMAL BREATHING PATTERN. absent: Respiratory Distress Additional comments: Became SOB when ambulated to BR - Cardiovascular Exam Cardiovascular Exam: Tachycardia - GI/Abdominal Exam GI & Abdominal Exam: Soft. absent: Distended, Firm, Guarding, Hernia, Rigid, Tenderness Additional comments: liposuction incision sites in bilateral inferior mammary folds and inferior abdomen as well as umbilicus. Sutures present in all incision sites - Extremities Exam Additional comments: Liposuction incision sites near bilateral elbows, sutures in place No calf edema or tenderness - Neurological Exam Neurological exam: Alert, CN II-XII Intact, Oriented x3 - Psychiatric Exam Psychiatric exam: Flat Affect - Skin Additional comments: Right gluteal region: induration with no fluctuance noted. Spongy area in inferior gluteal region. No crepitus. No erythema. Results - Vital Signs Recent Vital Signs: Last Vital Signs Temp 100 F H 05/27/17 15:40 Pulse 134 H 05/27/17 15:40 Resp 20 05/27/17 15:40 BP 105/57 L 05/27/17 15:40 Pulse Ox 100 05/27/17 15:40 - Labs Result Diagrams: 05/27/17 05:00 05/27/17 05:00 Labs: Laboratory Results - last 24 hr 05/26/17 05/27/17 05/27/17 05:00 05:00 05:00 WBC 14.4 H RBC 2.51 L Hgb 7.4 L Hct 22.1 L MCV 88.3 MCH 29.6 MCHC 33.5 RDW 13.9 Plt Count 249 MPV 7.2 Neut % (Auto) 82.7 H Lymph % (Auto) 4.8 L Rapides % (Auto) 11.2 H Eos % (Auto) 1.1 Baso % (Auto) 0.2 Neut # 11.9 H Lymph # 0.7 L [place] # 1.6 H Eos # 0.2 Baso # 0.0 Sodium 140 Potassium 3.8 Chloride 103 Carbon Dioxide 29 Anion Gap 11 BUN 5 L Creatinine 0.7 Est GFR ( Amer) > 60 Est GFR (Non-Af Amer) > 60 Random Glucose 132 H Calcium 8.3 L Total Bilirubin 0.6 AST 20 ALT 45 Alkaline Phosphatase 94 Total Protein 5.9 L Albumin 2.7 L Globulin 3.2 Albumin/Globulin Ratio 0.8 L Procalcitonin 0.18 L Assessment & Plan - Assessment and Plan (Free Text) Assessment: 21yo F with no significant PMHx who presented fever, chills, malaise, and pain in her right gluteal region after liposuction and [place] butt lift in the [place] on 05/14/17 and was found to be septic with possible right gluteal region cellulitis, need to rule out PE and abscess. - Tmax 101.4, currently afebrile - Tachycardic up to 140s - Leukocytosis decreased since admission, WBC 14.4 today - Blood cx negative @48 hours, urine cx negative - Remains anemic Hgb 7.4 today despite 1 unit PRBC and iron infusions - CT Pelvis on 05/25 showed cellulitis in right gluteal region extending to medial right thigh - Will repeat CT and get CT Abd/Pelvis with contrast to rule out bowel injury from liposuction and rule out new abscess formation - Ordered CT Chest PE protocol stat to rule out PE - Ordered ECHO to eval for right ventricular strain - Discussed plan with Dr. Logan Ojeda PGY-3
[2017-05-27] MEDS ORDERED: Sodium Chloride 0.9% 50 ML IV ONE (16:43)
[2017-05-27] MEDS: Meropenem 1 GM in Sodium Chloride 0.9% 100 ML IVPB SCH (17:02)
--- NOTE | 2017-05-27 18:23 | CT ---
PROCEDURE: CT HEAD WITHOUT CONTRAST. HISTORY: headache COMPARISON: None available. TECHNIQUE: Axial computed tomography images were obtained through the head/brain without intravenous contrast. Radiation dose: Total exam DLP = 886.43 mGy-cm. This CT exam was performed using one or more of the following dose reduction techniques: Automated exposure control, adjustment of the mA and/or kV according to patient size, and/or use of iterative reconstruction technique. FINDINGS: Streak artifact due to external radiopaque density limits evaluation. HEMORRHAGE: No intracranial hemorrhage. BRAIN: No mass effect or edema. The costa-white matter differentiation appears intact. Please note that MRI with diffusion imaging is more sensitive in the detection of acute ischemic event. VENTRICLES: No hydrocephalus. CALVARIUM: Unremarkable. PARANASAL SINUSES: Unremarkable as visualized. No significant inflammatory changes. MASTOID AIR CELLS: Unremarkable as visualized. No inflammatory changes. OTHER FINDINGS: None. IMPRESSION: Streak artifact limits evaluation. No acute intracranial pathology identified.
--- NOTE | 2017-05-27 19:44 | CP.PCM.PN ---
Subjective - Date & Time of Evaluation Date of Evaluation: 05/27/17 Time of Evaluation: 10:00 - Subjective Subjective: Patient was seen and examined bedside. Febrile with Tmax 101.4, tachycardic HR ranging up to 130 , with chills . With pain to right gluteal area No acute issuesovernight Denies any chest pain or SOB. Objective - Vital Signs/Intake and Output Vital Signs (last 24 hours): Temp Pulse Resp BP Pulse Ox 98.9 F 103 H 20 112/72 100 05/27/17 19:19 05/27/17 19:19 05/27/17 19:19 05/27/17 19:19 05/27/17 19:19 - Medications Medications: Current Medications Acetaminophen (Tylenol 325mg Tab) 650 mg PO Q6 PRN PRN Reason: Fever >100.4 F Last Admin: 05/27/17 08:42 Dose: 650 mg Acetaminophen (Tylenol 325mg Tab) 650 mg PO Q6 PRN PRN Reason: Pain, Mild (1-3) Last Admin: 05/27/17 17:09 Dose: 650 mg Enoxaparin Sodium (Lovenox) 40 mg SC DAILY [facility] PRN Reason: Protocol Last Admin: 05/27/17 08:46 Dose: 40 mg Famotidine (Pepcid) 20 mg PO BID [facility] Last Admin: 05/27/17 08:46 Dose: 20 mg Hydromorphone HCl (Dilaudid) 0.5 mg IVP Q4 PRN PRN Reason: Pain, severe (8-10) Last Admin: 05/27/17 14:15 Dose: 0.5 mg Vancomycin HCl 1 gm/ Sodium (Chloride) 250 mls @ 166.667 mls/hr IVPB Q12H [facility] Last Admin: 05/27/17 12:35 Dose: 166.667 mls/hr Iron Sucrose 100 mg/ Sodium (Chloride) 105 mls @ 105 mls/hr IVPB DAILY [facility] Stop: 05/28/17 09:59 Last Admin: 05/27/17 12:35 Dose: 105 mls/hr Meropenem 1 gm/ Sodium (Chloride) 100 mls @ 100 mls/hr IVPB Q8 [facility] Last Admin: 05/27/17 17:02 Dose: 100 mls/hr Ibuprofen (Motrin Tab) 600 mg PO Q6 PRN PRN Reason: Headache Last Admin: 05/27/17 14:11 Dose: 600 mg Ondansetron HCl (Zofran Inj) 4 mg IVP Q6 PRN PRN Reason: Nausea/Vomiting Oxycodone/Acetaminophen (Percocet 5/325 Mg Tab) 1 tab PO Q4 PRN PRN Reason: Pain, moderate (4-7) Stop: 05/28/17 15:30 Last Admin: 05/25/17 23:32 Dose: 1 tab Zolpidem Tartrate (Ambien) 5 mg PO HS PRN PRN Reason: Sleep Last Admin: 05/26/17 21:00 Dose: 5 mg - Labs Labs: 05/27/17 05:00 05/27/17 05:00 - Constitutional Appears: Non-toxic, No Acute Distress - Head Exam Head Exam: ATRAUMATIC, NORMAL INSPECTION, NORMOCEPHALIC - Eye Exam Eye Exam: EOMI, Normal appearance, PERRL Pupil Exam: NORMAL ACCOMODATION - ENT Exam ENT Exam: Mucous Membranes Moist, Normal Exam - Neck Exam Neck Exam: Full ROM, Normal Inspection - Respiratory Exam Respiratory Exam: Clear to Ausculation Bilateral, NORMAL BREATHING PATTERN. absent: Rales, Rhonchi, Wheezes - Cardiovascular Exam Cardiovascular Exam: Tachycardia. absent: JVD - GI/Abdominal Exam GI & Abdominal Exam: Soft, Normal Bowel Sounds. absent: Distended, Guarding, Tenderness, Rebound - Rectal Exam Additional comments: right gluteal area hard, tender, warm to plapation no drainage noted or open wound - Extremities Exam Extremities Exam: Full ROM, Normal Capillary Refill, Normal Inspection. absent : Pedal Edema - Back Exam Back Exam: NORMAL INSPECTION - Neurological Exam Neurological Exam: Alert, Awake, CN II-XII Intact, Oriented x3 - Psychiatric Exam Psychiatric exam: Flat Affect - Skin Skin Exam: Dry, Warm Assessment and Plan - Assessment and Plan (Free Text) Assessment: 21 y/o lady with recent Liposuction and Buttock Fat Transfer procedure and Breast augmentation done in the [place] 10 days ago , came bec of fever and generalized malaise. Patient was admitted with diagnosis of sepsis secondary to cellulitis and started on IV antibiotics,. ID was consulted . CT showed no definite abscess. patient still febrile and tachycardic plastic surgery consulted 1. Sepsis ( POA) sec to Cellulitis of buttock, right , post surgical infection Acute Pt had a hx of Liosuction and Fat transfer to Buttocks done in Pt came in febrile, tachycardic, WBC CT =19k Pt started on IV Zosyn and Vanco. Meropenem added today ID consult: Dr Zambrano CT of pelvis : findings consistent with cellulitis, no definite abscess patient continuos to be febrile plastic surgery Dr. Ford consulted Will repeat CT pelvis to rule out abscess formation CTA chest to rule out PE since patient is tachycardic Procalcitonin low 2. Postoperative anemia due to acute blood loss Acute Hgb=7.1 transfused 1 unit PRBC- Hgb now 7.4 started IV venofer x 3 days 3. DVT prophylaxis Acute Lovenox
--- NOTE | 2017-05-27 20:13 | CT ---
EXAM: CT Angiography Chest With Intravenous Contrast CLINICAL HISTORY: 21 years old, female; Signs and symptoms; Abdominal tenderness; Other: R/out pe; Additional info: Rule out pe; post implantation in the buttocks TECHNIQUE: Axial computed tomographic angiography images of the chest with intravenous contrast using pulmonary embolism protocol. This CT exam was performed using one or more of the following dose reduction techniques: automated exposure control, adjustment of the mA and/or kV according to patient size, and/or use of iterative reconstruction technique. MIP reconstructed images were created and reviewed. Coronal and sagittal reformatted images were created and reviewed. CONTRAST: 125 mL of VISIPAQUE 320 administered intravenously. COMPARISON: No relevant prior studies available. FINDINGS: Heart, aorta and Pulmonary arteries: Heart size is normal.There is fluid in the pericardial recesses.There is no aneurysm or dissection. Bolus timing limits evaluation of pulmonary arteries. There are no central pulmonary emboli. Peripheral vessels cannot be evaluated. Lungs and pleural spaces: Trachea and main bronchi are patent. There is minimal apical pleural scarring. There is dependent atelectasis bilaterally. There are no focal infiltrates. There are no effusions Mediastinum: Esophagus is unremarkable. There are no pathologically enlarged mediastinal or hilar nodes. Thyroid: Thyroid is not optimally demonstrated. Bones/joints: There are degenerative changes T7-8. There is deformity of the superior aspect of the body of the sternum which appears chronic. Soft tissues: There is body wall edema Upper abdomen: Refer to following report for abdominal findings IMPRESSION: No aneurysm, dissection or central pulmonary embolus, extremely limited evaluation of peripheral vessels due to bolus timing; no focal pneumonia; body wall edema Additional findings as described above. EXAM: CT Abdomen and Pelvis With Intravenous Contrast CLINICAL HISTORY: 21 years old, female; Signs and symptoms; Abdominal tenderness; Other: R/out pe; Additional info: Rule out pe; post implantation in the buttocks TECHNIQUE: Axial computed tomography images of the abdomen and pelvis with intravenous contrast. This CT exam was performed using one or more of the following dose reduction techniques: automated exposure control, adjustment of the mA and/or kV according to patient size, and/or use of iterative reconstruction technique. Coronal and sagittal reformatted images were created and reviewed. CONTRAST: 125 mL of VISIPAQUE 320 administered intravenously. EXAM DATE/TIME: 05/27/2017 4:10 PM COMPARISON: CT - PELVIS W/IV CONTRAST ONLY 05/25/2017 10:23:12 AM FINDINGS: Lower thorax: Refer to prior report for chest findings ABDOMEN: Liver: unremarkable Gallbladder and bile ducts: unremarkable Pancreas: unremarkable Spleen: unremarkable Adrenals: unremarkable Kidneys and ureters: unremarkable Stomach and bowel: Stomach is incompletely distended. Rotation is normal. Streak limits evaluation of the bowel. Small bowel is mildly distended with fluid and air. There is no obstruction. Terminal ileum is unremarkable. Appendix is not visualized. There is no pericecal inflammation. There is moderate stool in the colon. Appendix: See stomach and bowel PELVIS: Bladder: unremarkable Reproductive: Uterus and adnexal structures are unremarkable. ABDOMEN and PELVIS: Intraperitoneal space: There is no significant fluid.There is no free air. Bones/joints: There are no acute osseous abnormalities. There is minimal early degenerative change. There is small Schmorl's nodes at multiple levels. Soft tissues: There is diffuse body wall edema. Body wall edema has increased since the prior study. There is more focal inflammation and edema in the medial right buttock increased since the prior study. There is increased edema and inflammation in the medial upper right thigh. No rim enhancing collections are identified. There is implanted fat in the gluteus ugo muscles bilaterally. Vasculature: Vascular structures are unremarkable. Lymph nodes: There is shotty para-aortic adenopathy. IMPRESSION: Medial right lower buttock and medial right upper thigh cellulitis, increased since the prior study, no focal abscess; increasing body wall edema; no acute solid visceral abnormality, possible constipation
[2017-05-28] MEDS: Meropenem 1 GM in Sodium Chloride 0.9% 100 ML IVPB SCH ×3 (00:05→17:45)
[2017-05-28] MEDS: Lactated Ringer's 1,000 ML IV SCH ×3 (06:55→20:30)
[2017-05-28 07:31] LABS: BASO % 0.3 % (0.0-2.0); EOS # 0.3 K/uL (0.0-0.7); EOS % 2.2 % (0.0-4.0); HEMATOCRIT 22.8 % (34.0-47.0); LYMPH # 1.3 K/uL (1.0-4.3); LYMPH % 9.9 % (20.0-40.0); MEAN CELL VOLUME 87.9 fl (81.0-99.0); MEAN PLATELET VOLUME 7.2 fl (7.2-11.7); MONO % 14.8 % (0.0-10.0); NEUT # 9.8 K/uL (1.8-7.0); NEUT % 72.8 % (50.0-75.0); PLATELET COUNT 300 K/uL (130-400); RED CELL DISTRIBUTION WIDTH 14.1 % (11.5-14.5); WHITE BLOOD COUNT 13.4 K/uL (4.8-10.8)
[2017-05-28 07:52] LABS: ALB/GLOB RATIO 0.9 (1.0-2.1); ALKALINE PHOSPHATASE 108 U/L (38-126); ALT/SGPT 37 U/L (9-52); AST/SGOT 22 U/L (14-36); BILIRUBIN,TOTAL 0.5 mg/dl (0.2-1.3); BLOOD UREA NITROGEN 5 mg/dl (7-17); CALCIUM 8.4 mg/dL (8.4-10.2); CARBON DIOXIDE 27 mmol/L (22-30); CHLORIDE 104 mmol/L (98-107); GFR AFRICAN-AMERICAN > 60; GLUCOSE,RANDOM 120 mg/dL (65-105); POTASSIUM 3.8 MMOL/L (3.6-5.0); SODIUM 138 mmol/l (132-148); TOTAL PROTEIN 5.9 G/DL (6.3-8.2)
[2017-05-28] MEDS: Enoxaparin 40 mg Syringe SC SCH (08:10)
--- NOTE | 2017-05-28 10:21 | CARD ---
APPROVED REPORT EKG Measurement Heart [id number] <Conclusion> Normal sinus rhythm Possible Left atrial enlargement
--- NOTE | 2017-05-28 10:48 | CP.PCM.PN ---
Subjective - Date & Time of Evaluation Date of Evaluation: 05/28/07 Time of Evaluation: 11:00 - Subjective Subjective: Patient seen and examined bedside. Feeling sleepy . Febrile Tmax 101 , tachycardic HR 110 .No acute issues overnight. Still with pain to right buttock Objective - Vital Signs/Intake and Output Vital Signs (last 24 hours): Temp Pulse Resp BP Pulse Ox 100.5 F H 117 H 20 101/60 97 05/28/17 10:18 05/28/17 08:00 05/28/17 08:00 05/28/17 08:00 05/28/17 08:00 Intake and Output: 05/28/17 05/28/17 06:59 18:59 Intake Total 1200 Balance 1200 - Medications Medications: Current Medications Acetaminophen (Tylenol 325mg Tab) 650 mg PO Q6 PRN PRN Reason: Fever >100.4 F Last Admin: 05/28/17 10:18 Dose: 650 mg Acetaminophen (Tylenol 325mg Tab) 650 mg PO Q6 PRN PRN Reason: Pain, Mild (1-3) Last Admin: 05/27/17 17:09 Dose: 650 mg Enoxaparin Sodium (Lovenox) 40 mg SC DAILY [facility] PRN Reason: Protocol Last Admin: 05/28/17 08:10 Dose: Not Given Famotidine (Pepcid) 20 mg PO BID [facility] Last Admin: 05/28/17 08:10 Dose: Not Given Hydromorphone HCl (Dilaudid) 0.5 mg IVP Q4 PRN PRN Reason: Pain, severe (8-10) Last Admin: 05/28/17 08:30 Dose: 0.5 mg Vancomycin HCl 1 gm/ Sodium (Chloride) 250 mls @ 166.667 mls/hr IVPB Q12H [facility] Last Admin: 05/28/17 00:06 Dose: 166.667 mls/hr Meropenem 1 gm/ Sodium (Chloride) 100 mls @ 100 mls/hr IVPB Q8 [facility] Last Admin: 05/28/17 08:11 Dose: 100 mls/hr Lactated Ringer's (Lactated Ringer's) 1,000 mls @ 150 mls/hr IV .Q6H40M [facility] Last Admin: 05/28/17 06:55 Dose: 150 mls/hr Ibuprofen (Motrin Tab) 600 mg PO Q6 PRN PRN Reason: Headache Last Admin: 05/27/17 14:11 Dose: 600 mg Ondansetron HCl (Zofran Inj) 4 mg IVP Q6 PRN PRN Reason: Nausea/Vomiting Oxycodone/Acetaminophen (Percocet 5/325 Mg Tab) 1 tab PO Q4 PRN PRN Reason: Pain, moderate (4-7) Stop: 05/28/17 15:30 Last Admin: 05/25/17 23:32 Dose: 1 tab Zolpidem Tartrate (Ambien) 5 mg PO HS PRN PRN Reason: Sleep Last Admin: 05/26/17 21:00 Dose: 5 mg - Labs Labs: 05/28/17 06:00 05/28/17 06:00 - Constitutional Appears: Non-toxic, No Acute Distress, Other (sleepy ) - Head Exam Head Exam: ATRAUMATIC, NORMAL INSPECTION, NORMOCEPHALIC - Eye Exam Eye Exam: EOMI, Normal appearance, PERRL Pupil Exam: NORMAL ACCOMODATION - ENT Exam ENT Exam: Mucous Membranes Moist, Normal Exam - Neck Exam Neck Exam: Full ROM, Normal Inspection - Respiratory Exam Respiratory Exam: Clear to Ausculation Bilateral, NORMAL BREATHING PATTERN. absent: Rales, Rhonchi, Wheezes - Cardiovascular Exam Cardiovascular Exam: Tachycardia, RRR, +S1, +S2. absent: JVD - GI/Abdominal Exam GI & Abdominal Exam: Soft, Normal Bowel Sounds. absent: Distended, Guarding, Rebound - Rectal Exam Rectal Exam: Deferred - Exam Additional comments: right buttock warm , hard to touch with no fluctuation or drainage , tender - Extremities Exam Extremities Exam: Full ROM, Normal Capillary Refill, Normal Inspection. absent : Calf Tenderness, Pedal Edema - Back Exam Back Exam: NORMAL INSPECTION - Neurological Exam Neurological Exam: Alert, Awake, CN II-XII Intact, Oriented x3 - Psychiatric Exam Psychiatric exam: Normal Affect, Normal Mood - Skin Skin Exam: Dry, Intact, Normal Color, Warm Assessment and Plan - Assessment and Plan (Free Text) Assessment: 21 y/o lady with recent Liposuction and Buttock Fat Transfer procedure and Breast augmentation done in the [place] 10 days ago , came bec of fever and generalized malaise. Patient was admitted with diagnosis of sepsis secondary to cellulitis and started on IV antibiotics. ID was consulted . CT showed no definite abscess. patient still febrile and tachycardic plastic surgery consulted 1. Sepsis ( POA) sec to Cellulitis of buttock, right , post surgical infection Acute Pt had a hx of Liosuction and Fat transfer to Buttocks done in Pt came in febrile, tachycardic, WBC CT =19k Pt started on IV Zosyn and Vanco and Meropenem started 05/[address] Zambrano CT of pelvis : findings consistent with cellulitis, no definite abscess patient continuos to be febrile plastic surgery Dr. Ford consulted Plan for I& D in [place] today. Keep NPO after lunch and hold lovenox Procalcitonin low 2. Postoperative anemia due to acute blood loss Acute Hgb=7.1 transfused 1 unit PRBC- Hgb now 7.5 started IV venofer x 3 days 3. Tachycardia Most likely related to pain and fever HR as high as 130 CTA showed no PE or dissection Cardio clearance for surgery 4. DVT prophylaxis Acute Hold Lovenox today
[2017-05-28 10:58] LABS: EOSINOPHIL 1 % (0-7); NEUTROPHIL 72 % (42-75); TOTAL CELLS COUNTED 100
--- NOTE | 2017-05-28 15:04 | CP.PCM.CON ---
History of Present Illness - History of Present Illness History of Present Illness: Pt with sinus tachycardia on ecg, being evaluated for pre-op risk prior to undergoing abcess drainage. Pt denies cardiovascular symptoms. no cp, palp, dizziness, syncope, sob, pnd or edema. pt states she has had a fever, felt weak and feels thirsty. labs reveal anemia, she has had fevers and an active infection. additionally she is in pain. Echo reveals tachycardia, hyperdynamic lv from volume depletion and anemia, mild tr, completely collapsed ivc due to dehydration with est rap of 1 and pap of 28 mmhg. THere is no phtn. PAP are slightly elevated for age likely secondary to anemia. pt has no cardiac risk factors, no htn, dm, dyslipidemia, fam hx or tobacco use. she has normal menstrual cycles. Review of Systems - Constitutional Constitutional: Fatigue, Fever. absent: As Per HPI, Anorexia, Chills, Daytime Sleepiness, Excessive Sweating, Frequent Falls, Headache, Increased Appetite, Lethargy, Malaise, Night Sweats, Snoring, Sleep Apnea, Weight Gain, Weight Loss , Weakness, Other - EENT Eyes: absent: As Per HPI, Blind Spots, Blurred Vision, Change in Vision, Decreased Night Vision, Diplopia, Discharge, Dry Eye, Exophthalmos, Floaters, Irritation, Itchy Eyes, Loss of Peripheral Vision, Pain, Photophobia, Requires Corrective Lenses, Sees Flashes, Spots in Vision, Tunnel Vision, Other Visual Disturbances, Loss of Vision, Other Ears: absent: As Per HPI, Decreased Hearing, Ear Discharge, Ear Pain, Tinnitus, Abnormal Hearing, Disequilibrium, Dizziness, Other Nose/Mouth/Throat: absent: As Per HPI, Epistaxis, Nasal Congestion, Nasal Discharge, Nasal Obstruction, Nasal Trauma, Nose Pain, Post Nasal Drip, Sinus Pain, Sinus Pressure, Bleeding Gums, Change in Voice, Dental Pain, Dry Mouth, Dysphagia, Halitosis, Hoarsness, Lip Swelling, Mouth Lesions, Mouth Pain, Odynophagia, Sore Throat, Throat Swelling, Tongue Swelling, Facial Pain, Neck Pain, Neck Mass, Other - Breasts Breasts: absent: As Per HPI, Change in Shape, Mass, Pain, Nipple Discharge, Nipple Inversion, Skin Changes, Swelling, Other - Cardiovascular Cardiovascular: As Per HPI, Rapid Heart Rate. absent: Acrocyanosis, Chest Pain , Chest Pain at Rest, Chest Pain with Activity, Claudication, Diaphoresis, Dyspnea, Dyspnea on Exertion, Edema, Irregular Heart Rhythm, Pain Radiating to Arm/Neck/Jaw, Leg Edema, Leg Ulcers, Lightheadedness, Orthopnea, Palpitations, Paroxysmal Nocturnal Dyspnea, Pedal Edema, Radiating Pain, Slow Heart Rate, Syncope, Other - Respiratory Respiratory: As Per HPI. absent: Cough, Dyspnea, Hemoptysis, Dyspnea on Exertion, Wheezing, Snoring, Stridor, Pain on Inspiration, Chest Congestion, Excessive Mucous Production, Change in Mucous Color, Pain with Coughing, Other - Gastrointestinal Gastrointestinal: absent: As Per HPI, Abdominal Pain, Belching, Bloating, Change in Bowel Habits, Change in Stool Character, Coffee Ground Emesis, Constipation, Cramping, Diarrhea, Dyspepsia, Dysphagia, Early Satiety, Excessive Flatus, Fecal Incontinence, Heartburn, Hematemesis, Hematochezia, Loose Stools, Melena, Nausea, Odynophagia, Temesmus, Vomiting, Other - Genitourinary Genitourinary: absent: As Per HPI, Change in Urinary Stream, Difficulty Urinating, Dysuria, Flank Pain, Hematuria, Pyuria, Nocturia, Urinary Incontinence, Urinary Frequency, Urinary Hesitance, Urinary Urgency, Voiding Freq/Small Amts, Freq UTI, Hx Renal/Bladder Calculi, Hx /Renal Surgery, Bladder Distension, Other - Reproductive: Female Reproductive:Female: Menses 1-7 Days. absent: As Per HPI, Amenorrhea, Amenorrhea/ Control, Currently Menstual, Cycle <21 Days, Cycle >35 Days, Cycle Variable, Menses >/= 8 Days, Menses Variable, Cycle > 4 Weeks Between, No Menses for 6 Months, Heavy Menses, Light Menses, Normal Menses, Spotting Between Cycles, S/P Hysterectomy, Menopausal, Post Menopausal, Premenarche, Abnormal Vaginal Bleeding, Dysmenorrhea, Dyspareunia, Genital Lesions, Genital Pruritis, Pelvic Pain, Prolapse Symptoms, Sexual Dysfunction, Vaginal Discharge , Vaginal Dryness, Vaginal Odor, Vaginal Pruritis, Other - Menstruation Menstruation: As Per HPI. absent: Amenorrhea, Amenorrhea/ Control, Currently Menstual, Cycle <21 Days, Cycle >35 Days, Cycle Variable, Menses 1-7 Days, Menses >/= 8 Days, Menses Variable, Cycle > 4 Weeks Between, No Menses for 6 Months, Heavy Menses, Light Menses, Normal Menses, Spotting Between Cycles , S/P Hysterectomy, Menopausal, Post Menopausal, Premenarche, Abnormal Vaginal Bleeding, Dysmenorrhea, Other - Musculoskeletal Musculoskeletal: absent: As Per HPI, Abnormal Gait, Arthralgias, Atrophy, Back Pain, Deformity, Joint Swelling, Limited Range of Motion, Loss of Height, Muscle Cramps, Muscle Weakness, Myalgias, Neck Pain, Numbness, Radiating Pain into Limb, Stiffness, Tingling, Other - Integumentary Integumentary: absent: As Per HPI, Acne, Alopecia, Bleeding Lesions, Change in Hair, Change in Nails, Change in Pigmentation, Changing Lesions, Dry Skin, Erythema, Furuncle, Hirsutism, Lesions, New Lesions, Non-Healing Lesions, Photosensitivity, Pruritus, Rash, Skin Pain, Skin Ulcer, Sores, Striae, Swelling , Unusual Bruising, Wounds, Jaundice, Other - Neurological Neurological: absent: As Per HPI, Abnormal Gait, Abnormal Hearing, Abnormal Movements, Abnormal Speech, Behavioral Changes, Burning Sensations, Confusion, Convulsions, Disequilibrium, Dizziness, Numbness, Focal Weakness, Frequent Falls , Headaches, Lack of Coordination, Loss of Vision, Memory Loss, Paresthesias, Radicular Pain, Restless Legs, Sensory Deficit, Syncope, Tingling, Tremor, Vertigo, Weakness, Other Visual Disturbances, Other - Psychiatric Psychiatric: absent: As Per HPI, Abnormal Sleep Pattern, Anhedonia, Anxiety, Auditory Hallucinations, Behavioral Changes, Change in Appetite, Change in Libido, Confusion, Depression, Difficulty Concentrating, Hallucinations, Homicidal Ideation, Hopelessness, Irritability, Memory Loss, Mood Swings, Panic Attacks, Paranoia, Suicidal Ideation, Visual Hallucinations, Tactile Hallucinations, Other - Endocrine Endocrine: absent: As Per HPI, Change in Body Appearance, Change in Libido, Cold Intolorance, Deepening of Voice, Excessive Sweating, Fatigue, Flushing, Heat Intolorance, Increase in Ring/Shoe/Hat Size, Palpitations, Polydipsia, Polyphagia, Polyuria, Other - Hematologic/Lymphatic Hematologic: absent: As Per HPI, Easy Bleeding, Easy Bruising, Lymphadenopathy, Other Past Patient History - Past Medical History & Family History Past Medical History?: No Past Family History: Reviewed and not pertinent - Past Social History Smoking Status: Never Smoked Chewing Tobacco Use: No Cigar Use: No Alcohol: None Drugs: Denies - CARDIAC Hx Cardiac Disorders: No - PULMONARY Hx Respiratory Disorders: No - NEUROLOGICAL Hx Neurological Disorder: No - HEENT Hx HEENT Problems: No - RENAL Hx Chronic Kidney Disease: No - ENDOCRINE/METABOLIC Hx Endocrine Disorders: No - HEMATOLOGICAL/ONCOLOGICAL Hx Blood Disorders: No Hx AIDS: No Hx Human Immunodeficiency Virus (HIV): No - INTEGUMENTARY Hx Dermatological Problems: No - MUSCULOSKELETAL/RHEUMATOLOGICAL Hx Musculoskeletal Disorders: No Hx Falls: No - GASTROINTESTINAL Hx Gastrointestinal Disorders: No - GENITOURINARY/GYNECOLOGICAL Hx Genitourinary Disorders: No - PSYCHIATRIC Hx Psychophysiologic Disorder: No Hx Substance Use: No - SURGICAL HISTORY Hx Surgeries: Yes Other/Comment: Lipo suction to b/l arms, buttocks and abdomen - ANESTHESIA Hx Anesthesia: Yes Hx Anesthesia Reactions: No Hx Malignant Hyperthermia: No Meds Allergies/Adverse Reactions: Allergies Allergy/AdvReac Type Severity Reaction Status Date / Time No Known Allergies Allergy Verified 05/24/17 21:02 - Medications Medications: Current Medications Acetaminophen (Tylenol 325mg Tab) 650 mg PO Q6 PRN PRN Reason: Fever >100.4 F Last Admin: 05/28/17 10:18 Dose: 650 mg Acetaminophen (Tylenol 325mg Tab) 650 mg PO Q6 PRN PRN Reason: Pain, Mild (1-3) Last Admin: 05/27/17 17:09 Dose: 650 mg Enoxaparin Sodium (Lovenox) 40 mg SC DAILY [facility] PRN Reason: Protocol Last Admin: 05/28/17 08:10 Dose: Not Given Famotidine (Pepcid) 20 mg PO BID [facility] Last Admin: 05/28/17 08:10 Dose: Not Given Hydromorphone HCl (Dilaudid) 0.5 mg IVP Q4 PRN PRN Reason: Pain, severe (8-10) Last Admin: 05/28/17 13:45 Dose: 0.5 mg Vancomycin HCl 1 gm/ Sodium (Chloride) 250 mls @ 166.667 mls/hr IVPB Q12H [facility] Last Admin: 05/28/17 13:50 Dose: 166.667 mls/hr Meropenem 1 gm/ Sodium (Chloride) 100 mls @ 100 mls/hr IVPB Q8 [facility] Last Admin: 05/28/17 08:11 Dose: 100 mls/hr Lactated Ringer's (Lactated Ringer's) 1,000 mls @ 150 mls/hr IV .Q6H40M [facility] Last Admin: 05/28/17 13:49 Dose: Not Given Ibuprofen (Motrin Tab) 600 mg PO Q6 PRN PRN Reason: Headache Last Admin: 05/28/17 12:51 Dose: 600 mg Ondansetron HCl (Zofran Inj) 4 mg IVP Q6 PRN PRN Reason: Nausea/Vomiting Oxycodone/Acetaminophen (Percocet 5/325 Mg Tab) 1 tab PO Q4 PRN PRN Reason: Pain, moderate (4-7) Stop: 05/28/17 15:30 Last Admin: 05/25/17 23:32 Dose: 1 tab Zolpidem Tartrate (Ambien) 5 mg PO HS PRN PRN Reason: Sleep Last Admin: 05/26/17 21:00 Dose: 5 mg Physical Exam - Constitutional Appears: Non-toxic - Head Exam Head Exam: ATRAUMATIC, NORMAL INSPECTION, NORMOCEPHALIC - Eye Exam Eye Exam: EOMI, Normal appearance, PERRL. absent: Conjunctival injection, Nystagmus, Periorbital swelling, Periorbital tenderness, Scleral icterus Pupil Exam: NORMAL ACCOMODATION, PERRL. absent: Fixed, Irregular, Miosis, Mydriatic, Unequal - ENT Exam ENT Exam: Mucous Membranes Moist, Normal Exam. absent: Mucous Membranes Dry, Normal External Ear Exam, Normal Oropharynx, TM's Normal Bilaterally - Neck Exam Neck exam: Positive for: Normal Inspection. Negative for: Full Rom, Lymphadenopathy, Meningismus, Tenderness, Thyromegaly - Respiratory Exam Respiratory Exam: Clear to Auscultation Bilateral, NORMAL BREATHING PATTERN. absent: Accessory Muscle Use, Chest Wall Tenderness, Decreased Breath Sounds, Prolonged Expiratory Phase, Rales, Rhonchi, Wheezes, Respiratory Distress, Stridor - Cardiovascular Exam Cardiovascular Exam: Tachycardia, REGULAR RHYTHM, +S1, +S2, Systolic Murmur. absent: Bradycardia, Clicks, Diastolic murmur, Gallop, Irregular Rhythm, JVD, RRR, Rubs, +S4 - GI/Abdominal Exam GI & Abdominal Exam: Normal Bowel Sounds, Soft. absent: Bruit, Diminished Bowel Sounds, Distended, Firm, Guarding, Hernia, Hyperactive Bowel Sounds, Hypoactive Bowel Sounds, Mass, Organomegaly, Pulsatile Mass, Rebound, Rigid, Tenderness - Rectal Exam Rectal Exam: Deferred - Extremities Exam Extremities exam: Positive for: normal inspection. Negative for: calf tenderness, full ROM, joint swelling, normal capillary refill, pedal edema, tenderness, pedal pulses present - Back Exam Back exam: NORMAL INSPECTION. absent: CVA tenderness (L), CVA tenderness (R), FULL ROM, muscle spasm, paraspinal tenderness, rash noted, tenderness, vertebral tenderness - Neurological Exam Neurological exam: Alert, CN II-XII Intact, Oriented x3, Reflexes Normal - Psychiatric Exam Psychiatric exam: Normal Affect, Normal Mood - Skin Skin Exam: Dry, Intact, Normal Color, Warm Results - Vital Signs Recent Vital Signs: Last Vital Signs Temp 101.5 F H 05/28/17 12:51 Pulse 120 H 05/28/17 12:00 Resp 18 05/28/17 12:00 BP 115/61 05/28/17 12:00 Pulse Ox 98 05/28/17 12:00 - Labs Result Diagrams: 05/28/17 06:00 05/28/17 06:00 Labs: Laboratory Results - last 24 hr 05/27/17 05/27/17 05/28/17 15:15 15:15 06:00 WBC 13.4 H RBC 2.60 L Hgb 7.5 L Hct 22.8 L MCV 87.9 MCH 29.0 MCHC 33.0 RDW 14.1 Plt Count 300 MPV 7.2 Neut % (Auto) 72.8 Lymph % (Auto) 9.9 L Scott % (Auto) 14.8 H Eos % (Auto) 2.2 Baso % (Auto) 0.3 Neut # 9.8 H Lymph # 1.3 Scott # 2.0 H Eos # 0.3 Baso # 0.0 Neutrophils % (Manual) 72 Band Neutrophils % 2 Lymphocytes % (Manual) 11 L Monocytes % (Manual) 14 H Eosinophils % (Manual) 1 Toxic Granulation Present Platelet Estimate Normal Hypochromasia (manual) Moderate Ovalocytes Slight Schistocytes Slight Sodium Potassium Chloride Carbon Dioxide Anion Gap BUN Creatinine Est GFR ( Amer) Est GFR (Non-Af Amer) Random Glucose Lactic Acid 1.8 Calcium Total Bilirubin AST ALT Alkaline Phosphatase Total Protein Albumin Globulin Albumin/Globulin Ratio Procalcitonin 0.25 05/28/17 06:00 WBC RBC Hgb Hct MCV MCH MCHC RDW Plt Count MPV Neut % (Auto) Lymph % (Auto) Scott % (Auto) Eos % (Auto) Baso % (Auto) Neut # Lymph # Scott # Eos # Baso # Neutrophils % (Manual) Band Neutrophils % Lymphocytes % (Manual) Monocytes % (Manual) Eosinophils % (Manual) Toxic Granulation Platelet Estimate Hypochromasia (manual) Ovalocytes Schistocytes Sodium 138 Potassium 3.8 Chloride 104 Carbon Dioxide 27 Anion Gap 11 BUN 5 L Creatinine 0.7 Est GFR ( Amer) > 60 Est GFR (Non-Af Amer) > 60 Random Glucose 120 H Lactic Acid Calcium 8.4 Total Bilirubin 0.5 AST 22 ALT 37 Alkaline Phosphatase 108 Total Protein 5.9 L Albumin 2.8 L Globulin 3.2 Albumin/Globulin Ratio 0.9 L Procalcitonin - EKG Data EKG Interpreted by: Myself EKG shows normal: Sinus rhythm Rate: Tachycardia Assessment & Plan (1) Sinus tachycardia Status: Acute (2) Dehydration Status: Acute (3) Cellulitis of buttock, right Status: Acute (4) Fever Status: Acute (5) Leukocytosis Status: Acute (6) Postoperative anemia due to acute blood loss Status: Acute - Assessment and Plan (Free Text) Plan: PT IS LOW RISK FOR SURGICAL PROCEDURE. SHE HAS A PHYSIOLOGICAL TACHYCARDIA SECONDARY TO PAIN, DEHYDRATION, ANEMIA AND FEVER. SHE MAY PROCEED TO [place]. PLEASE DO NOT USE BETA BLOCKERS FOR HER SINUS TACH. I RECOMMEND IVF HYDRATION, PRBC'S, ANTIBIOTICS, AND PAIN CONTROL. THANK YOU. CALL IF ANY QUESTIONS OR CONCERNS. [phone]
[2017-05-28 15:31] LABS: MALARIA PREP NONE SEEN (NONE SEEN)
--- NOTE | 2017-05-28 19:00 | CARD ---
APPROVED REPORT EXAM: Two-dimensional and M-mode echocardiogram with Doppler and color Doppler. Other Information Quality : GoodRhythm : NSR INDICATION RV Function 2D DIMENSIONS IVSd1.10 (0.7-1.1cm)LVDd5.84 (3.9-5.9cm) LVOT Diameter1.92 (1.8-2.4cm)PWd0.99 (0.7-1.1cm) IVSs1.44 (0.8-1.2cm)LVDs3.84 (2.5-4.0cm) FS (%) 34.2 %PWs1.23 (0.8-1.2cm) M-Mode DIMENSIONS Left Atrium (MM)3.32 (2.5-4.0cm)IVSd1.09 (0.7-1.1cm) Aortic Root3.26 (2.2-3.7cm)LVDd5.15 (4.0-5.6cm) Aortic Cusp Exc.2.32 (1.5-2.0cm)PWd0.85 (0.7-1.1cm) IVSs1.68 cmFS (%) 33 % LVDs3.44 (2.0-3.8cm)PWs1.82 cm Mitral Valve E/A ratio0.0 TDI E/Lateral E'0.0E/Medial E'0.0 Pulmonary Valve PV Peak Fdhulciu57.3cm/s Tricuspid Valve TR Peak [id number] [id number] Peak Gr.27mmHg [id number] LEFT VENTRICLE The left ventricle is of the upper limits of normal in size. There is normal left ventricular wall thickness. The left ventricular function is normal. The left ventricular ejection fraction is - 60%. There is normal LV segmental wall motion. The left ventricular diastolic function is normal. No left ventricle thrombus noted on this study. There is no ventricular septal defect visualized. There is no left ventricular aneurysm. There is no mass noted in the left ventricle. RIGHT VENTRICLE The right ventricle is moderately dilated. There is normal right ventricular wall thickness. The right ventricular systolic function is normal. ATRIA The left atrium size is normal. There is no thrombus suspected in the left atrium. The right atrium is mildly dilated. The interatrial septum is intact with no evidence for an atrial septal defect. AORTIC VALVE The aortic valve is normal in structure and function. No aortic regurgitation is present. There is no aortic valvular stenosis. MITRAL VALVE The mitral valve is normal in structure and function. The mitral valve does not fit criteria for prolapse. There is no mitral valve stenosis. There is no mitral valve regurgitation noted. TRICUSPID VALVE The tricuspid valve is normal in structure and function. There is mild to moderate tricuspid regurgitation. Right ventricular systolic pressure is estimated at 37 mmHg. There is no tricuspid valve prolapse or vegetation. There is no tricuspid valve stenosis. PULMONIC VALVE The pulmonary valve is normal in structure and function. There is no pulmonic valvular regurgitation. GREAT VESSELS The aortic root is normal in size. The IVC collapses <50% with inspiration. PERICARDIAL EFFUSION The pericardium appears normal. There is no pleural effusion. <Conclusion> The study is of fair quality. The left ventricle is of the upper limits of normal in size. There is normal left ventricular wall thickness. The left ventricular function is normal. The left ventricular ejection fraction is - 60%. The right ventricle is moderately dilated. The right atrium is mildly dilated. The mitral, aortic and tricuspid valves are normal. There is mild to moderate tricuspid regurgitation.
[2017-05-28] MEDS ORDERED: Propofol 10 mg/ml Inj (20 ML) ONE ×2 (21:56→22:55)
[2017-05-28] MEDS ORDERED: Midazolam 2 MG/2 ML VIAL ONE (21:56)
[2017-05-28] MEDS ORDERED: Sodium Chloride 0.9% 500 ML IV ONE ×4 (22:00)
[2017-05-28] MEDS ORDERED: Succinylcholine 200 mg/10 ml Inj IV ONE (22:00)
[2017-05-28] MEDS ORDERED: Lidocaine 2% MPF (5 ml) Inj ONE (22:02)
[2017-05-28] MEDS ORDERED: Sodium Chloride 0.9% 10 ML IV ONE (22:05)
[2017-05-28] MEDS: Bupivacaine 0.5% Inj(30mL) ONE ×2 (22:41→22:50)
[2017-05-28] MEDS ORDERED: Morphine 1 mg/ml preservative-free Inj(Duramorph) ONE (22:46)
[2017-05-28] MEDS ORDERED: Lactated Ringer's 1,000 ML IV SCH (23:11)
[2017-05-28] MEDS ORDERED: HYDROmorphone 0.5 mg/0.5 ml ISec ONE (23:13)
--- NOTE | 2017-05-28 23:23 | PCM.SURG1 ---
Surgeon's Initial Post Op Note - Surgeon's Notes Surgeon: Dr. Ford Precision Honer: Leah Dc PGY2; Halima Kraft Pre-Operative Diagnosis: Right gluteal abscess Operative Findings: Right gluteal large, loculated abscess and fat necrosis. See full report Post-Operative Diagnosis: same Operation Performed: Incision and drainage of right gluteal abscess with iodoform gauze packing Specimen/Specimens Removed: purulent fluid Estimated Blood Loss: EBL {In ML}: 10 Date of Surgery/Procedure: 05/28/17 Time of Surgery/Procedure: 21:45
[2017-05-29] MEDS ORDERED: Lactated Ringer's 1,000 ML IV ONE
[2017-05-29] MEDS: Meropenem 1 GM in Sodium Chloride 0.9% 100 ML IVPB SCH ×3 (00:41→17:11)
[2017-05-29] MEDS: Lactated Ringer's 1,000 ML IV SCH (01:46)
[2017-05-29 07:13] LABS: BASO % 0.3 % (0.0-2.0); EOS # 0.3 K/uL (0.0-0.7); EOS % 2.4 % (0.0-4.0); HEMATOCRIT 21.1 % (34.0-47.0); LYMPH # 1.1 K/uL (1.0-4.3); LYMPH % 10.1 % (20.0-40.0); MEAN CELL VOLUME 87.7 fl (81.0-99.0); MEAN CORPUSCULAR HEMOGLOBIN 29.8 pg (27.0-31.0); MEAN PLATELET VOLUME 8.7 fl (7.2-11.7); MONO # 1.7 K/uL (0.0-0.8); MONO % 15.3 % (0.0-10.0); NEUT % 71.9 % (50.0-75.0); WHITE BLOOD COUNT 11.1 K/uL (4.8-10.8)
[2017-05-29 07:25] LABS: BLOOD UREA NITROGEN 4 mg/dl (7-17); CALCIUM 7.9 mg/dL (8.4-10.2); CARBON DIOXIDE 26 mmol/L (22-30); CHLORIDE 103 mmol/L (98-107); GFR AFRICAN-AMERICAN > 60; GLUCOSE,RANDOM 163 mg/dL (65-105); POTASSIUM 3.7 MMOL/L (3.6-5.0); SODIUM 136 mmol/l (132-148)
--- NOTE | 2017-05-29 07:40 | CP.PCM.PN ---
Subjective - Date & Time of Evaluation Date of Evaluation: 05/29/17 Time of Evaluation: 06:30 - Subjective Subjective: PLASTIC SURGERY PROGRESS NOTE FOR DR. VARGAS Patient seen and examined at bedside. She reports that her pain is well controlled with the dilaudid. She feels less weak when she ambulates to the bathroom although she does still get dizzy. Her MATTA has improved. She denies CP or SOB. She has not eaten since her surgery last night. Objective - Vital Signs/Intake and Output Vital Signs (last 24 hours): Temp Pulse Resp BP Pulse Ox 99.7 F H 109 H 20 104/60 95 05/29/17 04:53 05/29/17 04:53 05/29/17 04:53 05/29/17 04:53 05/29/17 04:53 Intake and Output: 05/29/17 05/29/17 06:59 18:59 Intake Total 700 Balance 700 - Medications Medications: Current Medications Acetaminophen (Tylenol 325mg Tab) 650 mg PO Q6 PRN PRN Reason: Fever >100.4 F Last Admin: 05/28/17 10:18 Dose: 650 mg Acetaminophen (Tylenol 325mg Tab) 650 mg PO Q6 PRN PRN Reason: Pain, Mild (1-3) Last Admin: 05/29/17 04:45 Dose: 650 mg Enoxaparin Sodium (Lovenox) 40 mg SC DAILY [facility] PRN Reason: Protocol Last Admin: 05/28/17 08:10 Dose: Not Given Famotidine (Pepcid) 20 mg PO BID [facility] Last Admin: 05/28/17 17:44 Dose: Not Given Hydromorphone HCl (Dilaudid) 1 mg IVP Q4 PRN PRN Reason: Pain, severe (8-10) Last Admin: 05/29/17 04:34 Dose: 1 mg Hydromorphone HCl (Dilaudid) 0.5 mg IVP Q4 PRN PRN Reason: Pain, moderate (4-7) Vancomycin HCl 1 gm/ Sodium (Chloride) 250 mls @ 166.667 mls/hr IVPB Q12H [facility] Last Admin: 05/29/17 01:50 Dose: 166.667 mls/hr Meropenem 1 gm/ Sodium (Chloride) 100 mls @ 100 mls/hr IVPB Q8 [facility] Last Admin: 05/29/17 00:41 Dose: 100 mls/hr Lactated Ringer's (Lactated Ringer's) 1,000 mls @ 150 mls/hr IV .Q6H40M [facility] Last Admin: 05/29/17 01:46 Dose: Not Given Lactated Ringer's (Lactated Ringer's) 1,000 mls @ 100 mls/hr IV .Q10H [facility] Last Admin: 05/29/17 00:45 Dose: 100 mls/hr Ibuprofen (Motrin Tab) 600 mg PO Q6 PRN PRN Reason: Headache Last Admin: 05/28/17 12:51 Dose: 600 mg Ondansetron HCl (Zofran Inj) 4 mg IVP Q6 PRN PRN Reason: Nausea/Vomiting Last Admin: 05/28/17 17:46 Dose: 4 mg Zolpidem Tartrate (Ambien) 5 mg PO HS PRN PRN Reason: Sleep Last Admin: 05/26/17 21:00 Dose: 5 mg - Labs Labs: 05/29/17 06:05 05/29/17 06:05 - Constitutional Appears: Non-toxic, No Acute Distress - Head Exam Head Exam: ATRAUMATIC, NORMAL INSPECTION - Respiratory Exam Respiratory Exam: NORMAL BREATHING PATTERN. absent: Respiratory Distress - Cardiovascular Exam Cardiovascular Exam: Tachycardia - Neurological Exam Neurological Exam: Alert, Awake, Oriented x3 - Psychiatric Exam Psychiatric exam: Normal Affect, Normal Mood - Skin Skin Exam: Dry, Normal Color, Warm Additional comments: Right buttock dressing with some serosanguinous drainage (changed) Packing in place Serosanguinous drainage from I&D site Assessment and Plan - Assessment and Plan (Free Text) Assessment: 21yo F with no significant PMHx who presented fever, chills, malaise, and pain in her right gluteal region after liposuction and [place] butt lift in the [place] on 05/14/17 and was found to be septic with possible right gluteal region cellulitis and abscess, now POD#1 from I&D with iodoaform packing - Tmax 101.5, currently afebrile and afebrile overnight - Continues to be Tachycardic, s/p ECHO, per cardiac technologist, tachycardia is physiological secondary to pain, dehydration, anemia and fever - Leukocytosis decreased to 11.1 from 13.4 yesterday - Blood cx negative @4 days, urine cx negative - Anemia Hgb 7.2 today, down from 7.5 yesterday - Changed dressing today - Packing will be changed tomorrow - Will F/U cultures from OR - Discussed plan with Dr. Logan Ojeda PGY-3
--- NOTE | 2017-05-29 13:25 | CP.PCM.PN ---
Subjective - Date & Time of Evaluation Date of Evaluation: 05/29/17 Time of Evaluation: 08:00 - Subjective Subjective: less fever and chills awake alert denies chest pain cough or sob Objective - Vital Signs/Intake and Output Vital Signs (last 24 hours): Temp Pulse Resp BP Pulse Ox 99.5 F 94 H 18 121/76 96 05/29/17 12:00 05/29/17 12:00 05/29/17 12:00 05/29/17 12:00 05/29/17 12:00 Intake and Output: 05/29/17 05/29/17 06:59 18:59 Intake Total 700 Balance 700 - Medications Medications: Current Medications Acetaminophen (Tylenol 325mg Tab) 650 mg PO Q6 PRN PRN Reason: Fever >100.4 F Last Admin: 05/28/17 10:18 Dose: 650 mg Acetaminophen (Tylenol 325mg Tab) 650 mg PO Q6 PRN PRN Reason: Pain, Mild (1-3) Last Admin: 05/29/17 04:45 Dose: 650 mg Enoxaparin Sodium (Lovenox) 40 mg SC DAILY [facility] PRN Reason: Protocol Last Admin: 05/28/17 08:10 Dose: Not Given Famotidine (Pepcid) 20 mg PO BID [facility] Last Admin: 05/29/17 08:52 Dose: 20 mg Hydromorphone HCl (Dilaudid) 1 mg IVP Q4 PRN PRN Reason: Pain, severe (8-10) Last Admin: 05/29/17 08:44 Dose: 1 mg Hydromorphone HCl (Dilaudid) 0.5 mg IVP Q4 PRN PRN Reason: Pain, moderate (4-7) Vancomycin HCl 1 gm/ Sodium (Chloride) 250 mls @ 166.667 mls/hr IVPB Q12H [facility] Last Admin: 05/29/17 01:50 Dose: 166.667 mls/hr Meropenem 1 gm/ Sodium (Chloride) 100 mls @ 100 mls/hr IVPB Q8 [facility] Last Admin: 05/29/17 08:48 Dose: 100 mls/hr Lactated Ringer's (Lactated Ringer's) 1,000 mls @ 150 mls/hr IV .Q6H40M [facility] Last Admin: 05/29/17 01:46 Dose: Not Given Lactated Ringer's (Lactated Ringer's) 1,000 mls @ 100 mls/hr IV .Q10H [facility] Last Admin: 05/29/17 00:45 Dose: 100 mls/hr Ibuprofen (Motrin Tab) 600 mg PO Q6 PRN PRN Reason: Headache Last Admin: 05/28/17 12:51 Dose: 600 mg Ondansetron HCl (Zofran Inj) 4 mg IVP Q6 PRN PRN Reason: Nausea/Vomiting Last Admin: 05/28/17 17:46 Dose: 4 mg Zolpidem Tartrate (Ambien) 5 mg PO HS PRN PRN Reason: Sleep Last Admin: 05/26/17 21:00 Dose: 5 mg - Labs Labs: 05/29/17 06:05 05/29/17 06:05 - Constitutional Appears: Non-toxic, Chronically Ill - Head Exam Head Exam: NORMOCEPHALIC - Eye Exam Eye Exam: PERRL. absent: Scleral icterus - ENT Exam ENT Exam: Mucous Membranes Dry, Normal External Ear Exam - Neck Exam Neck Exam: absent: Lymphadenopathy, Thyromegaly - Respiratory Exam Respiratory Exam: Decreased Breath Sounds, Clear to Ausculation Bilateral - Cardiovascular Exam Cardiovascular Exam: REGULAR RHYTHM, +S1, +S2 - GI/Abdominal Exam GI & Abdominal Exam: Distended, Soft. absent: Tenderness - Rectal Exam Rectal Exam: Deferred - Exam Exam: NORMAL INSPECTION - Extremities Exam Extremities Exam: absent: Calf Tenderness, Pedal Edema, Tenderness - Back Exam Back Exam: absent: CVA tenderness (L), CVA tenderness (R) - Neurological Exam Neurological Exam: Alert, Awake, CN II-XII Intact, Oriented x3 - Psychiatric Exam Psychiatric exam: Normal Affect - Skin Skin Exam: Dry Additional comments: Right buttock dressing with some serosanguinous drainage Packing in place Serosanguinous drainage from I&D site Assessment and Plan (1) Anemia Status: Acute (2) Cellulitis of buttock, right Status: Acute (3) Fever Status: Acute (4) Leukocytosis Status: Acute (5) Postoperative anemia due to acute blood loss Status: Acute - Assessment and Plan (Free Text) Assessment: s/p Drainage of right buttock abscess improving on IV antibiotics await cultures cont IV Vanco/ Merrem for now
[2017-05-29] MEDS: Enoxaparin 40 mg Syringe SC SCH (13:35)
--- NOTE | 2017-05-29 16:39 | CP.PCM.PN ---
Subjective - Date & Time of Evaluation Date of Evaluation: 05/29/17 Time of Evaluation: 09:30 - Subjective Subjective: Patient was seen and examined bedside. s/p I&D of buttock abscess yesterday. Feeling a little better. Still complains of pain to right buttock area, denies chills, Tmax 99.9 Still tachycardic Hr 98-100, denies any chest pain or SOB Objective - Vital Signs/Intake and Output Vital Signs (last 24 hours): Temp Pulse Resp BP Pulse Ox 99.1 F 95 H 20 113/71 98 05/29/17 15:31 05/29/17 15:31 05/29/17 15:31 05/29/17 15:31 05/29/17 15:31 Intake and Output: 05/29/17 05/29/17 06:59 18:59 Intake Total 700 200 Balance 700 200 - Medications Medications: Current Medications Acetaminophen (Tylenol 325mg Tab) 650 mg PO Q6 PRN PRN Reason: Fever >100.4 F Last Admin: 05/28/17 10:18 Dose: 650 mg Acetaminophen (Tylenol 325mg Tab) 650 mg PO Q6 PRN PRN Reason: Pain, Mild (1-3) Last Admin: 05/29/17 04:45 Dose: 650 mg Enoxaparin Sodium (Lovenox) 40 mg SC DAILY [facility] PRN Reason: Protocol Last Admin: 05/29/17 13:35 Dose: 40 mg Famotidine (Pepcid) 20 mg PO BID [facility] Last Admin: 05/29/17 08:52 Dose: 20 mg Hydromorphone HCl (Dilaudid) 1 mg IVP Q4 PRN PRN Reason: Pain, severe (8-10) Last Admin: 05/29/17 13:33 Dose: 1 mg Hydromorphone HCl (Dilaudid) 0.5 mg IVP Q4 PRN PRN Reason: Pain, moderate (4-7) Vancomycin HCl 1 gm/ Sodium (Chloride) 250 mls @ 166.667 mls/hr IVPB Q12H [facility] Last Admin: 05/29/17 13:34 Dose: 166.667 mls/hr Meropenem 1 gm/ Sodium (Chloride) 100 mls @ 100 mls/hr IVPB Q8 [facility] Last Admin: 05/29/17 08:48 Dose: 100 mls/hr Lactated Ringer's (Lactated Ringer's) 1,000 mls @ 150 mls/hr IV .Q6H40M [facility] Last Admin: 05/29/17 01:46 Dose: Not Given Lactated Ringer's (Lactated Ringer's) 1,000 mls @ 100 mls/hr IV .Q10H [facility] Last Admin: 05/29/17 00:45 Dose: 100 mls/hr Ibuprofen (Motrin Tab) 600 mg PO Q6 PRN PRN Reason: Headache Last Admin: 05/28/17 12:51 Dose: 600 mg Ondansetron HCl (Zofran Inj) 4 mg IVP Q6 PRN PRN Reason: Nausea/Vomiting Last Admin: 05/28/17 17:46 Dose: 4 mg Zolpidem Tartrate (Ambien) 5 mg PO HS PRN PRN Reason: Sleep Last Admin: 05/26/17 21:00 Dose: 5 mg - Labs Labs: 05/29/17 06:05 05/29/17 06:05 - Constitutional Appears: Non-toxic, No Acute Distress - Head Exam Head Exam: ATRAUMATIC, NORMAL INSPECTION, NORMOCEPHALIC - Eye Exam Eye Exam: EOMI, Normal appearance, PERRL Pupil Exam: NORMAL ACCOMODATION - ENT Exam ENT Exam: Mucous Membranes Moist, Normal Exam - Neck Exam Neck Exam: Full ROM, Normal Inspection - Respiratory Exam Respiratory Exam: Clear to Ausculation Bilateral, NORMAL BREATHING PATTERN. absent: Rales, Rhonchi, Wheezes - Cardiovascular Exam Cardiovascular Exam: Tachycardia, REGULAR RHYTHM, RRR, +S1, +S2. absent: JVD - GI/Abdominal Exam GI & Abdominal Exam: Soft, Normal Bowel Sounds. absent: Distended, Guarding, Tenderness, Rebound - Rectal Exam Rectal Exam: Deferred - Exam Additional comments: right buttock cellulitis , tender and hard to touch ,warmer with area of I& D with packing in place close to midline - Extremities Exam Extremities Exam: Full ROM, Normal Capillary Refill, Normal Inspection. absent : Calf Tenderness, Pedal Edema - Back Exam Back Exam: NORMAL INSPECTION - Neurological Exam Neurological Exam: Alert, Awake - Psychiatric Exam Psychiatric exam: Normal Affect, Normal Mood - Skin Skin Exam: Dry, Intact, Normal Color, Warm Assessment and Plan - Assessment and Plan (Free Text) Assessment: 21 y/o lady with recent Liposuction and Buttock Fat Transfer procedure and Breast augmentation done in the [place] 10 days ago , came bec of fever and generalized malaise. Patient was admitted with diagnosis of sepsis secondary to cellulitis and started on IV antibiotics. ID was consulted . CT showed no definite abscess. Patient still febrile and tachycardic Plastic surgery consulted and patient taken to OR yesterday for I&D and packing of abscess . 1. Sepsis ( POA) sec to Cellulitis and abscess of right buttock, post surgical infection Acute Pt had a hx of Liposuction and Fat transfer to Buttocks done in Pt came in febrile, tachycardic, WBC CT =19k ID consulted Dr Zambrano CT of pelvis showed cellulitis, no definite abscess started on IV Zosyn,Vanco and Meropenem started 05/[address] Ford consulted since patient continued to be febrile despite broad spectrum IV antibiotics s/p I& D yesterday 05/[address] Ford that showed large right gluteal abscess , locutated and fat necrosis Wound cultures sent Continue wound care and packing changes daily as per surgery Continue IV Zosyn, Meropenem and Vancomycin 2. Postoperative anemia due to acute blood loss Acute Hgb=7.2 transfused 1 unit PRBC received IV venofer x 3 days Start ferrous sulafte 3. Tachycardia Most likely related to pain and fever HR better controlled CTA showed no PE or dissection Cardio cleared patient for surgery.Avoid Beta blockers continue IVF, pain management 4. DVT prophylaxis Acute Lovenox today
[2017-05-29] MEDS: Sodium Chloride 0.9% 1,000 ML IV SCH (21:32)
--- NOTE | 2017-05-29 21:40 | CP.PCM.PN ---
Subjective - Date & Time of Evaluation Date of Evaluation: 05/29/17 Time of Evaluation: 18:00 - Subjective Subjective: doing well. hr decreased, bp stable. ivf running. Objective - Vital Signs/Intake and Output Vital Signs (last 24 hours): Temp Pulse Resp BP Pulse Ox 99.8 F H 83 20 122/77 98 05/29/17 19:20 05/29/17 19:20 05/29/17 19:20 05/29/17 19:20 05/29/17 19:20 Intake and Output: 05/29/17 05/30/17 18:59 06:59 Intake Total 1850 Balance 1850 - Medications Medications: Current Medications Acetaminophen (Tylenol 325mg Tab) 650 mg PO Q6 PRN PRN Reason: Fever >100.4 F Last Admin: 05/28/17 10:18 Dose: 650 mg Acetaminophen (Tylenol 325mg Tab) 650 mg PO Q6 PRN PRN Reason: Pain, Mild (1-3) Last Admin: 05/29/17 04:45 Dose: 650 mg Enoxaparin Sodium (Lovenox) 40 mg SC DAILY [facility] PRN Reason: Protocol Last Admin: 05/29/17 13:35 Dose: 40 mg Famotidine (Pepcid) 20 mg PO BID [facility] Last Admin: 05/29/17 17:09 Dose: 20 mg Ferrous Sulfate (Feosol) 325 mg PO BID [facility] Last Admin: 05/29/17 17:09 Dose: 325 mg Hydromorphone HCl (Dilaudid) 1 mg IVP Q4 PRN PRN Reason: Pain, severe (8-10) Last Admin: 05/29/17 18:05 Dose: 1 mg Hydromorphone HCl (Dilaudid) 0.5 mg IVP Q4 PRN PRN Reason: Pain, moderate (4-7) Vancomycin HCl 1 gm/ Sodium (Chloride) 250 mls @ 166.667 mls/hr IVPB Q12H [facility] Last Admin: 05/29/17 13:34 Dose: 166.667 mls/hr Meropenem 1 gm/ Sodium (Chloride) 100 mls @ 100 mls/hr IVPB Q8 [facility] Last Admin: 05/29/17 17:11 Dose: 100 mls/hr Lactated Ringer's (Lactated Ringer's) 1,000 mls @ 150 mls/hr IV .Q6H40M [facility] Last Admin: 05/29/17 01:46 Dose: Not Given Sodium Chloride (Sodium Chloride 0.9%) 1,000 mls @ 100 mls/hr IV .Q10H [facility] Stop: 05/30/17 20:17 Last Admin: 05/29/17 21:32 Dose: Not Given Ibuprofen (Motrin Tab) 600 mg PO Q6 PRN PRN Reason: Headache Last Admin: 05/28/17 12:51 Dose: 600 mg Ondansetron HCl (Zofran Inj) 4 mg IVP Q6 PRN PRN Reason: Nausea/Vomiting Last Admin: 05/28/17 17:46 Dose: 4 mg Zolpidem Tartrate (Ambien) 5 mg PO HS PRN PRN Reason: Sleep Last Admin: 05/26/17 21:00 Dose: 5 mg - Labs Labs: 05/29/17 06:05 05/29/17 06:05 - Constitutional Appears: Well - Head Exam Head Exam: ATRAUMATIC, NORMAL INSPECTION, NORMOCEPHALIC - Eye Exam Eye Exam: EOMI, Normal appearance, PERRL. absent: Conjunctival injection, Nystagmus, Periorbital swelling, Periorbital tenderness, Scleral icterus Pupil Exam: NORMAL ACCOMODATION, PERRL - ENT Exam ENT Exam: Mucous Membranes Moist, Normal Exam. absent: Mucous Membranes Dry, Normal External Ear Exam, Normal Oropharynx, TM's Normal Bilaterally - Neck Exam Neck Exam: Full ROM, Normal Inspection - Respiratory Exam Respiratory Exam: Clear to Ausculation Bilateral, NORMAL BREATHING PATTERN. absent: Accessory Muscle Use, Chest Wall Tenderness, Decreased Breath Sounds, Prolonged Expiratory Phase, Rales, Rhonchi, Wheezes, Respiratory Distress, Stridor - Cardiovascular Exam Cardiovascular Exam: REGULAR RHYTHM, +S1, +S2, Murmur. absent: Bradycardia, Tachycardia, Clicks, Diastolic murmur, Gallop, Irregular Rhythm, JVD, RRR, Rubs , +S4 - GI/Abdominal Exam GI & Abdominal Exam: Soft, Normal Bowel Sounds - Rectal Exam Rectal Exam: Deferred - Extremities Exam Extremities Exam: Full ROM, Normal Capillary Refill, Normal Inspection - Back Exam Back Exam: NORMAL INSPECTION. absent: CVA tenderness (L), CVA tenderness (R), Full ROM, muscle spasm, paraspinal tenderness, rash noted, tenderness, vertebral tenderness - Neurological Exam Neurological Exam: Alert, Awake, CN II-XII Intact, Normal Gait, Oriented x3. absent: Abnormal Gait, Altered, Motor Sensory Deficit, Reflexes Normal - Psychiatric Exam Psychiatric exam: Normal Affect, Normal Mood. absent: Agitated, Anxious, Depressed, Flat Affect, Homicidal Ideation, Manic, Suicidal Ideation - Skin Skin Exam: Dry, Intact, Normal Color, Warm. absent: Abrasion, Cyanosis, Diaphoretic, Erythema, Mottled, Pallor, Pallor, Petechiae, Rash, Urticaria, Vesicles Assessment and Plan (1) Sinus tachycardia Status: Resolved (2) Dehydration Status: Acute (3) Cellulitis of buttock, right Status: Acute (4) Fever Status: Acute (5) Leukocytosis Status: Acute (6) Postoperative anemia due to acute blood loss Status: Acute - Assessment and Plan (Free Text) Plan: doing well. would consider prbc as with hydration pts hb will likely decrease. pain control abx will sign off. recall if needed. thank you for the consult.
[2017-05-30] MEDS: Meropenem 1 GM in Sodium Chloride 0.9% 100 ML IVPB SCH ×3 (00:18→16:47)
[2017-05-30] MEDS: Sodium Chloride 0.9% 1,000 ML IV SCH (06:23)
[2017-05-30 07:49] LABS: BASO % 0.4 % (0.0-2.0); EOS # 0.4 K/uL (0.0-0.7); EOS % 4.4 % (0.0-4.0); HEMATOCRIT 21.4 % (34.0-47.0); LYMPH % 20.7 % (20.0-40.0); MEAN CELL VOLUME 87.1 fl (81.0-99.0); MEAN CORPUSCULAR HEMOGLOBIN 28.9 pg (27.0-31.0); MEAN CORPUSCULAR HGB CONC 33.2 g/dL (33.0-37.0); MONO # 1.8 K/uL (0.0-0.8); MONO % 18.6 % (0.0-10.0); NEUT # 5.4 K/uL (1.8-7.0); NEUT % 55.9 % (50.0-75.0); RED CELL DISTRIBUTION WIDTH 14.4 % (11.5-14.5); WHITE BLOOD COUNT 9.6 K/uL (4.8-10.8)
[2017-05-30 08:04] LABS: BLOOD UREA NITROGEN 3 mg/dl (7-17); CALCIUM 7.7 mg/dL (8.4-10.2); CARBON DIOXIDE 29 mmol/L (22-30); CHLORIDE 105 mmol/L (98-107); GFR AFRICAN-AMERICAN > 60; GLUCOSE,RANDOM 92 mg/dL (65-105); POTASSIUM 3.7 MMOL/L (3.6-5.0); SODIUM 140 mmol/l (132-148)
[2017-05-30] MEDS: Enoxaparin 40 mg Syringe SC SCH (09:07)
[2017-05-30] MEDS ORDERED: Benzocaine/Menthol (Cepacol) Lozenge PO PRN (09:20)
[2017-05-30] MEDS: HYDROmorphone 0.5 mg/0.5 ml ISec IVP PRN (10:29)
--- NOTE | 2017-05-30 13:52 | CP.PCM.PN ---
Subjective - Date & Time of Evaluation Date of Evaluation: 05/30/17 Time of Evaluation: 10:00 - Subjective Subjective: No fever this am- had fever at 10pm last night still with buttock pain but better has sl sore throat no CP no SOB no abd pain Objective - Vital Signs/Intake and Output Vital Signs (last 24 hours): Temp Pulse Resp BP Pulse Ox 98.6 F 85 18 125/79 98 05/30/17 12:00 05/30/17 12:00 05/30/17 12:00 05/30/17 12:00 05/30/17 12:00 - Medications Medications: Current Medications Acetaminophen (Tylenol 325mg Tab) 650 mg PO Q6 PRN PRN Reason: Fever >100.4 F Last Admin: 05/29/17 22:42 Dose: 650 mg Acetaminophen (Tylenol 325mg Tab) 650 mg PO Q6 PRN PRN Reason: Pain, Mild (1-3) Last Admin: 05/29/17 04:45 Dose: 650 mg Benzocaine/Menthol (Cepacol Sore Throat) 1 miguel PO Q3 PRN PRN Reason: Sore Throat Last Admin: 05/30/17 10:34 Dose: 1 miguel Enoxaparin Sodium (Lovenox) 40 mg SC DAILY [facility] PRN Reason: Protocol Last Admin: 05/30/17 09:07 Dose: 40 mg Famotidine (Pepcid) 20 mg PO BID [facility] Last Admin: 05/30/17 09:07 Dose: 20 mg Ferrous Sulfate (Feosol) 325 mg PO BID [facility] Last Admin: 05/30/17 09:07 Dose: 325 mg Hydromorphone HCl (Dilaudid) 1 mg IVP Q4 PRN PRN Reason: Pain, severe (8-10) Last Admin: 05/30/17 13:15 Dose: 1 mg Hydromorphone HCl (Dilaudid) 0.5 mg IVP Q4 PRN PRN Reason: Pain, moderate (4-7) Last Admin: 05/30/17 10:29 Dose: 0.5 mg Vancomycin HCl 1 gm/ Sodium (Chloride) 250 mls @ 166.667 mls/hr IVPB Q12H [facility] Last Admin: 05/30/17 12:18 Dose: 166.667 mls/hr Meropenem 1 gm/ Sodium (Chloride) 100 mls @ 100 mls/hr IVPB Q8 [facility] Last Admin: 05/30/17 09:06 Dose: 100 mls/hr Lactated Ringer's (Lactated Ringer's) 1,000 mls @ 150 mls/hr IV .Q6H40M [facility] Last Admin: 05/29/17 01:46 Dose: Not Given Sodium Chloride (Sodium Chloride 0.9%) 1,000 mls @ 100 mls/hr IV .Q10H [facility] Stop: 05/30/17 20:17 Last Admin: 05/30/17 06:23 Dose: Not Given Ibuprofen (Motrin Tab) 600 mg PO Q6 PRN PRN Reason: Headache Last Admin: 05/30/17 09:05 Dose: 600 mg Lactulose (Enulose) 20 gm PO DAILY PRN PRN Reason: Constipation Ondansetron HCl (Zofran Inj) 4 mg IVP Q6 PRN PRN Reason: Nausea/Vomiting Last Admin: 05/28/17 17:46 Dose: 4 mg Zolpidem Tartrate (Ambien) 5 mg PO HS PRN PRN Reason: Sleep Last Admin: 05/26/17 21:00 Dose: 5 mg - Labs Labs: 05/30/17 06:00 05/30/17 06:00 - Constitutional Appears: No Acute Distress - Head Exam Head Exam: NORMAL INSPECTION, NORMOCEPHALIC - Eye Exam Eye Exam: EOMI, Normal appearance, PERRL Pupil Exam: NORMAL ACCOMODATION - ENT Exam ENT Exam: Mucous Membranes Moist, Normal External Ear Exam - Neck Exam Neck Exam: Full ROM. absent: Meningismus no rigidity - Respiratory Exam Respiratory Exam: NORMAL BREATHING PATTERN. absent: Respiratory Distress - Cardiovascular Exam Cardiovascular Exam: Tachycardia, REGULAR RHYTHM, +S1, +S2 Breast examined : no tendrness, no signs of ifection - GI/Abdominal Exam GI & Abdominal Exam: Soft, Normal Bowel Sounds. absent: Tenderness no discharge on sites where liposuction trocar was inserted - Extremities Exam Extremities Exam: Full ROM, Normal Capillary Refill. absent: Calf Tenderness, Pedal Edema - Back Exam Back Exam: Full ROM, NORMAL INSPECTION. absent: CVA tenderness (L), CVA tenderness (R) Additional comments: tenderness , induration right buttock extending to upper thigh , with dressing ( s/p I&D) - Neurological Exam Neurological Exam: Alert, Awake, CN II-XII Intact, Normal Gait, Oriented x3 Neuro motor strength exam: Left Upper Extremity: 5, Right Upper Extremity: 5, Left Lower Extremity: 5, Right Lower Extremity: 5 - Psychiatric Exam Psychiatric exam: Normal Affect, Normal Mood - Skin Skin Exam: Dry, Normal Color, Warm Assessment and Plan (1) Cellulitis of buttock, right Status: Acute (2) Postoperative anemia due to acute blood loss Status: Acute (3) DVT prophylaxis Status: Acute - Assessment and Plan (Free Text) Assessment: 21 y/o lady with recent Liposuction and Buttock Fat Transfer procedure and Breast augmentation done in the [place] 10 days ago , came bec of fever and generalized malaise. Patient was admitted with diagnosis of sepsis secondary to cellulitis and started on IV antibiotics. ID was consulted . CT showed no definite abscess. Patient still febrile and tachycardic Plastic surgery consulted and patient taken to OR yesterday for I&D and packing of abscess . 1. Sepsis ( POA) sec to Cellulitis and abscess of right buttock, post surgical infection Acute Pt had a hx of Liposuction and Fat transfer to Buttocks done in Pt came in febrile, tachycardic, WBC CT =19k ID consulted Dr Zambrano CT of pelvis showed cellulitis, no definite abscess started on IV Zosyn,Vanco and Meropenem started 05/[address] Ford consulted since patient continued to be febrile despite broad spectrum IV antibiotics s/p I& 05/[address] Ford that showed large right gluteal abscess , loculated and fat necrosis Wound cultures sent Continue wound care and packing changes daily as per surgery Continue IV Zosyn, Meropenem and Vancomycin 2. Postoperative anemia due to acute blood loss Acute transfused 1 unit PRBC received IV venofer x 4 days Start ferrous sulafte 3. Tachycardia Most likely related to pain and fever HR better controlled CTA showed no PE or dissection Cardio cleared patient for surgery. Avoid Beta blockers continue IVF, pain management 4. DVT prophylaxis Acute Lovenox
--- NOTE | 2017-05-30 23:16 | CP.PCM.PN ---
Subjective - Date & Time of Evaluation Date of Evaluation: 05/30/17 Time of Evaluation: 07:00 - Subjective Subjective: PLASTIC SURGERY PROGRESS NOTE FOR DR. VARGAS Patient seen and examined at bedside. She reports that her pain comes and goes. Her MATTA comes and goes as well. She states it is painful to walk. Her MATTA has improved. She denies CP or SOB Objective - Vital Signs/Intake and Output Vital Signs (last 24 hours): Temp Pulse Resp BP Pulse Ox 97.8 F 67 20 123/80 100 05/30/17 20:09 05/30/17 19:08 05/30/17 19:08 05/30/17 19:08 05/30/17 19:08 Intake and Output: 05/30/17 05/31/17 18:59 06:59 Intake Total 950 Balance 950 - Medications Medications: Current Medications Acetaminophen (Tylenol 325mg Tab) 650 mg PO Q6 PRN PRN Reason: Fever >100.4 F Last Admin: 05/29/17 22:42 Dose: 650 mg Acetaminophen (Tylenol 325mg Tab) 650 mg PO Q6 PRN PRN Reason: Pain, Mild (1-3) Last Admin: 05/30/17 20:09 Dose: 650 mg Benzocaine/Menthol (Cepacol Sore Throat) 1 miguel PO Q3 PRN PRN Reason: Sore Throat Last Admin: 05/30/17 10:34 Dose: 1 miguel Enoxaparin Sodium (Lovenox) 40 mg SC DAILY [facility] PRN Reason: Protocol Last Admin: 05/30/17 09:07 Dose: 40 mg Famotidine (Pepcid) 20 mg PO BID [facility] Last Admin: 05/30/17 16:48 Dose: 20 mg Ferrous Sulfate (Feosol) 325 mg PO BID [facility] Last Admin: 05/30/17 16:48 Dose: 325 mg Hydromorphone HCl (Dilaudid) 1 mg IVP Q4 PRN PRN Reason: Pain, severe (8-10) Last Admin: 05/30/17 21:37 Dose: 1 mg Hydromorphone HCl (Dilaudid) 0.5 mg IVP Q4 PRN PRN Reason: Pain, moderate (4-7) Last Admin: 05/30/17 10:29 Dose: 0.5 mg Vancomycin HCl 1 gm/ Sodium (Chloride) 250 mls @ 166.667 mls/hr IVPB Q12H [facility] Last Admin: 05/30/17 12:18 Dose: 166.667 mls/hr Meropenem 1 gm/ Sodium (Chloride) 100 mls @ 100 mls/hr IVPB Q8 [facility] Last Admin: 05/30/17 16:47 Dose: 100 mls/hr Ibuprofen (Motrin Tab) 600 mg PO Q6 PRN PRN Reason: Headache Last Admin: 05/30/17 16:52 Dose: 600 mg Lactulose (Enulose) 20 gm PO DAILY PRN PRN Reason: Constipation Last Admin: 05/30/17 16:47 Dose: 20 gm Ondansetron HCl (Zofran Inj) 4 mg IVP Q6 PRN PRN Reason: Nausea/Vomiting Last Admin: 05/28/17 17:46 Dose: 4 mg Zolpidem Tartrate (Ambien) 5 mg PO HS PRN PRN Reason: Sleep Last Admin: 05/26/17 21:00 Dose: 5 mg - Labs Labs: 05/30/17 06:00 05/30/17 06:00 - Constitutional Appears: Non-toxic, No Acute Distress - Head Exam Head Exam: ATRAUMATIC, NORMAL INSPECTION - Respiratory Exam Respiratory Exam: NORMAL BREATHING PATTERN. absent: Respiratory Distress - Cardiovascular Exam Cardiovascular Exam: +S1, +S2 - Neurological Exam Neurological Exam: Alert, Awake, Oriented x3 - Psychiatric Exam Psychiatric exam: Normal Affect, Normal Mood - Skin Skin Exam: Dry, Normal Color, Warm Additional comments: Dressing dry and intact, packing in place Assessment and Plan - Assessment and Plan (Free Text) Assessment: 21yo F with no significant PMHx who presented fever, chills, malaise, and pain in her right gluteal region after liposuction and [place] butt lift in the [place] on 05/14/17 and was found to be septic with possible right gluteal region cellulitis and abscess, now POD#2 from I&D with iodoaform packing - Tmax 100.5, currently afebrile - Tachycardia improved - Leukocytosis resolved today - Wound cx= no growth @ 24 hours - Anemia Hgb 7.1 today - Will change packing - Continue antibiotics - Discussed plan with Dr. Logan Ojeda PGY-3
[2017-05-31] MEDS: Meropenem 1 GM in Sodium Chloride 0.9% 100 ML IVPB SCH ×2 (01:17→08:37)
[2017-05-31] MEDS: HYDROmorphone 0.5 mg/0.5 ml ISec IVP PRN ×7 (05:30→22:17)
[2017-05-31] MEDS: Enoxaparin 40 mg Syringe SC SCH (08:39)
--- NOTE | 2017-05-31 10:15 | CP.PCM.PN ---
Subjective - Date & Time of Evaluation Date of Evaluation: 05/31/17 Time of Evaluation: 10:00 - Subjective Subjective: No fever still with buttock pain no CP no SOB no abd pain Objective - Vital Signs/Intake and Output Vital Signs (last 24 hours): Temp Pulse Resp BP Pulse Ox 98.6 F 68 20 135/85 98 05/31/17 08:00 05/31/17 08:00 05/31/17 08:00 05/31/17 08:00 05/31/17 08:00 - Medications Medications: Current Medications Acetaminophen (Tylenol 325mg Tab) 650 mg PO Q6 PRN PRN Reason: Fever >100.4 F Last Admin: 05/29/17 22:42 Dose: 650 mg Acetaminophen (Tylenol 325mg Tab) 650 mg PO Q6 PRN PRN Reason: Pain, Mild (1-3) Last Admin: 05/31/17 05:09 Dose: 650 mg Benzocaine/Menthol (Cepacol Sore Throat) 1 miguel PO Q3 PRN PRN Reason: Sore Throat Last Admin: 05/30/17 10:34 Dose: 1 miguel Enoxaparin Sodium (Lovenox) 40 mg SC DAILY [facility] PRN Reason: Protocol Last Admin: 05/31/17 08:39 Dose: 40 mg Famotidine (Pepcid) 20 mg PO BID [facility] Last Admin: 05/31/17 08:38 Dose: 20 mg Ferrous Sulfate (Feosol) 325 mg PO BID [facility] Last Admin: 05/31/17 08:38 Dose: 325 mg Hydromorphone HCl (Dilaudid) 0.5 mg IVP Q4 PRN PRN Reason: Pain, moderate (4-7) Last Admin: 05/31/17 05:30 Dose: 0.5 mg Hydromorphone HCl (Dilaudid) 1 mg IVP Q4 PRN PRN Reason: Pain, severe (8-10) Last Admin: 05/31/17 08:37 Dose: 1 mg Vancomycin HCl 1 gm/ Sodium (Chloride) 250 mls @ 166.667 mls/hr IVPB Q12H [facility] Last Admin: 05/31/17 01:19 Dose: 166.667 mls/hr Meropenem 1 gm/ Sodium (Chloride) 100 mls @ 100 mls/hr IVPB Q8 [facility] Last Admin: 05/31/17 08:37 Dose: 100 mls/hr Ibuprofen (Motrin Tab) 600 mg PO Q6 PRN PRN Reason: Headache Last Admin: 05/30/17 16:52 Dose: 600 mg Lactulose (Enulose) 20 gm PO DAILY PRN PRN Reason: Constipation Last Admin: 05/30/17 16:47 Dose: 20 gm Ondansetron HCl (Zofran Inj) 4 mg IVP Q6 PRN PRN Reason: Nausea/Vomiting Last Admin: 05/31/17 05:13 Dose: 4 mg Zolpidem Tartrate (Ambien) 5 mg PO HS PRN PRN Reason: Sleep Last Admin: 05/26/17 21:00 Dose: 5 mg - Labs Labs: 05/30/17 06:00 05/30/17 06:00 - Constitutional Appears: No Acute Distress - Head Exam Head Exam: NORMAL INSPECTION, NORMOCEPHALIC - Eye Exam Eye Exam: EOMI, Normal appearance, PERRL Pupil Exam: NORMAL ACCOMODATION - ENT Exam ENT Exam: Mucous Membranes Moist, Normal External Ear Exam - Neck Exam Neck Exam: Full ROM. absent: Meningismus no rigidity - Respiratory Exam Respiratory Exam: NORMAL BREATHING PATTERN. absent: Respiratory Distress - Cardiovascular Exam Cardiovascular Exam: Tachycardia, REGULAR RHYTHM, +S1, +S2 Breast examined : no tendrness, no signs of ifection - GI/Abdominal Exam GI & Abdominal Exam: Soft, Normal Bowel Sounds. absent: Tenderness no discharge on sites where liposuction trocar was inserted - Extremities Exam Extremities Exam: Full ROM, Normal Capillary Refill. absent: Calf Tenderness, Pedal Edema - Back Exam Back Exam: Full ROM, NORMAL INSPECTION. absent: CVA tenderness (L), CVA tenderness (R) Additional comments: tenderness , induration right buttock extending to upper thigh , with dressing ( s/p I&D) - Neurological Exam Neurological Exam: Alert, Awake, CN II-XII Intact, Normal Gait, Oriented x3 Neuro motor strength exam: Left Upper Extremity: 5, Right Upper Extremity: 5, Left Lower Extremity: 5, Right Lower Extremity: 5 - Psychiatric Exam Psychiatric exam: Normal Affect, Normal Mood - Skin Skin Exam: Dry, Normal Color, Warm Assessment and Plan (1) Cellulitis of buttock, right Status: Acute (2) Postoperative anemia due to acute blood loss Status: Acute (3) DVT prophylaxis Status: Acute - Assessment and Plan (Free Text) Assessment: 21 y/o lady with recent Liposuction and Buttock Fat Transfer procedure and Breast augmentation done in the [place] 10 days ago , came bec of fever and generalized malaise. Patient was admitted with diagnosis of sepsis secondary to cellulitis and started on IV antibiotics. ID was consulted . CT showed no definite abscess. Patient still febrile and tachycardic Plastic surgery consulted and patient taken to OR for I&D and packing of abscess . 1. Sepsis ( POA) sec to Cellulitis and abscess of right buttock, post surgical infection s/p Incisiona nd drainage of abscess and placement of packing Pt had a hx of Liposuction and Fat transfer to Buttocks done in [place] Pt came in febrile, tachycardic, WBC CT =19k ID consulted Dr Zambrano CT of pelvis showed cellulitis, no definite abscess started on IV Zosyn,Vanco and Meropenem started 05/[address] Ford consulted since patient continued to be febrile despite broad spectrum IV antibiotics s/p I&D 05/[address] Ford that showed large right gluteal abscess , loculated and fat necrosis Wound cultures sent- negative Gram Stain and AFB Stain Continue wound care and packing changes daily as per surgery Antibibiotic descalated to IV Cefazolin and Vanco Will arrange for PICC line for outpt IV abx and outpt wound packing 2. Postoperative anemia due to acute blood loss Acute transfused 1 unit PRBC received IV venofer x 4 days Start ferrous sulfate still anemic at 7.1 however hemodynamically stable 3. Tachycardia Most likely related to pain and fever HR better controlled CTA showed no PE or dissection Cardio cleared patient for surgery. Avoid Beta blockers continue IVF, pain management 4. DVT prophylaxis Acute Lovenox
--- NOTE | 2017-05-31 12:28 | CP.PCM.PN ---
Subjective - Date & Time of Evaluation Date of Evaluation: 05/31/17 Time of Evaluation: 08:00 - Subjective Subjective: PLASTIC SURGERY PROGRESS NOTE FOR DR. VARGAS Patient seen and examined at bedside. She reports that she still has pain in her right buttock area. A stat dose of 0.5mg dilaudid was given and the packing was removed and repacked. Dressing changed. Objective - Vital Signs/Intake and Output Vital Signs (last 24 hours): Temp Pulse Resp BP Pulse Ox 98.6 F 68 20 135/85 98 05/31/17 08:00 05/31/17 08:00 05/31/17 08:00 05/31/17 08:00 05/31/17 08:00 - Medications Medications: Current Medications Acetaminophen (Tylenol 325mg Tab) 650 mg PO Q6 PRN PRN Reason: Fever >100.4 F Last Admin: 05/29/17 22:42 Dose: 650 mg Acetaminophen (Tylenol 325mg Tab) 650 mg PO Q6 PRN PRN Reason: Pain, Mild (1-3) Last Admin: 05/31/17 05:09 Dose: 650 mg Benzocaine/Menthol (Cepacol Sore Throat) 1 miguel PO Q3 PRN PRN Reason: Sore Throat Last Admin: 05/30/17 10:34 Dose: 1 miguel Enoxaparin Sodium (Lovenox) 40 mg SC DAILY [facility] PRN Reason: Protocol Last Admin: 05/31/17 08:39 Dose: 40 mg Famotidine (Pepcid) 20 mg PO BID [facility] Last Admin: 05/31/17 08:38 Dose: 20 mg Ferrous Sulfate (Feosol) 325 mg PO BID [facility] Last Admin: 05/31/17 08:38 Dose: 325 mg Hydromorphone HCl (Dilaudid) 0.5 mg IVP Q4 PRN PRN Reason: Pain, moderate (4-7) Last Admin: 05/31/17 10:45 Dose: 0.5 mg Hydromorphone HCl (Dilaudid) 1 mg IVP Q4 PRN PRN Reason: Pain, severe (8-10) Last Admin: 05/31/17 08:37 Dose: 1 mg Vancomycin HCl 1 gm/ Sodium (Chloride) 250 mls @ 166.667 mls/hr IVPB Q12H [facility] Last Admin: 05/31/17 01:19 Dose: 166.667 mls/hr Meropenem 1 gm/ Sodium (Chloride) 100 mls @ 100 mls/hr IVPB Q8 [facility] Last Admin: 05/31/17 08:37 Dose: 100 mls/hr Ibuprofen (Motrin Tab) 600 mg PO Q6 PRN PRN Reason: Headache Last Admin: 05/30/17 16:52 Dose: 600 mg Lactulose (Enulose) 20 gm PO DAILY PRN PRN Reason: Constipation Last Admin: 05/30/17 16:47 Dose: 20 gm Ondansetron HCl (Zofran Inj) 4 mg IVP Q6 PRN PRN Reason: Nausea/Vomiting Last Admin: 05/31/17 05:13 Dose: 4 mg Zolpidem Tartrate (Ambien) 5 mg PO HS PRN PRN Reason: Sleep Last Admin: 05/26/17 21:00 Dose: 5 mg - Labs Labs: 05/30/17 06:00 05/30/17 06:00 - Constitutional Appears: Non-toxic, No Acute Distress - Head Exam Head Exam: ATRAUMATIC, NORMAL INSPECTION - Eye Exam Eye Exam: EOMI, Normal appearance - Respiratory Exam Respiratory Exam: NORMAL BREATHING PATTERN. absent: Respiratory Distress - Cardiovascular Exam Cardiovascular Exam: +S1, +S2 - GI/Abdominal Exam GI & Abdominal Exam: Soft. absent: Distended, Tenderness - Neurological Exam Neurological Exam: Alert, Awake, Oriented x3 - Psychiatric Exam Psychiatric exam: Anxious - Skin Additional comments: Right inferior buttock small incision with packing in place (removed) Small amount purulent material expressed New packing placed Dressing changed Assessment and Plan - Assessment and Plan (Free Text) Assessment: 21yo F with no significant PMHx who presented fever, chills, malaise, and pain in her right gluteal region after liposuction and [place] butt lift in the [place] on 05/14/17 and was found to be septic with possible right gluteal region cellulitis and abscess, now POD#3 from I&D with iodoaform packing - Afebrile, tachycardia resolved - Leukocytosis resolved today - Wound cx= no growth @ prelim read; AFB negative - Changed packing, changed dressing - Continue antibiotics per ID - Need to set up VNS for every other day packing change at home - Once VNS set up, patient clear for discharge from surgical standpoint - Discussed plan with Dr. Logan Ojeda PGY-3
--- NOTE | 2017-05-31 14:00 | CP.PCM.PN ---
Subjective - Date & Time of Evaluation Date of Evaluation: 05/31/17 Time of Evaluation: 07:00 - Subjective Subjective: still in pain' afebrile cultures negativ thus far will de-escalate iv antibiotic rx Objective - Vital Signs/Intake and Output Vital Signs (last 24 hours): Temp Pulse Resp BP Pulse Ox 97.9 F 56 L 18 101/62 99 05/31/17 12:00 05/31/17 12:00 05/31/17 12:00 05/31/17 12:00 05/31/17 12:00 - Medications Medications: Current Medications Acetaminophen (Tylenol 325mg Tab) 650 mg PO Q6 PRN PRN Reason: Fever >100.4 F Last Admin: 05/29/17 22:42 Dose: 650 mg Acetaminophen (Tylenol 325mg Tab) 650 mg PO Q6 PRN PRN Reason: Pain, Mild (1-3) Last Admin: 05/31/17 05:09 Dose: 650 mg Benzocaine/Menthol (Cepacol Sore Throat) 1 miguel PO Q3 PRN PRN Reason: Sore Throat Last Admin: 05/30/17 10:34 Dose: 1 miguel Enoxaparin Sodium (Lovenox) 40 mg SC DAILY [facility] PRN Reason: Protocol Last Admin: 05/31/17 08:39 Dose: 40 mg Famotidine (Pepcid) 20 mg PO BID [facility] Last Admin: 05/31/17 08:38 Dose: 20 mg Ferrous Sulfate (Feosol) 325 mg PO BID [facility] Last Admin: 05/31/17 08:38 Dose: 325 mg Hydromorphone HCl (Dilaudid) 0.5 mg IVP Q4 PRN PRN Reason: Pain, moderate (4-7) Last Admin: 05/31/17 10:45 Dose: 0.5 mg Hydromorphone HCl (Dilaudid) 1 mg IVP Q4 PRN PRN Reason: Pain, severe (8-10) Last Admin: 05/31/17 13:00 Dose: 1 mg Vancomycin HCl 1 gm/ Sodium (Chloride) 250 mls @ 166.667 mls/hr IVPB Q12H [facility] Last Admin: 05/31/17 13:01 Dose: 166.667 mls/hr Meropenem 1 gm/ Sodium (Chloride) 100 mls @ 100 mls/hr IVPB Q8 [facility] Last Admin: 05/31/17 08:37 Dose: 100 mls/hr Ibuprofen (Motrin Tab) 600 mg PO Q6 PRN PRN Reason: Headache Last Admin: 05/30/17 16:52 Dose: 600 mg Lactulose (Enulose) 20 gm PO DAILY PRN PRN Reason: Constipation Last Admin: 05/30/17 16:47 Dose: 20 gm Ondansetron HCl (Zofran Inj) 4 mg IVP Q6 PRN PRN Reason: Nausea/Vomiting Last Admin: 05/31/17 05:13 Dose: 4 mg Zolpidem Tartrate (Ambien) 5 mg PO HS PRN PRN Reason: Sleep Last Admin: 05/26/17 21:00 Dose: 5 mg - Labs Labs: 05/30/17 06:00 05/30/17 06:00 - Constitutional Appears: Non-toxic, Chronically Ill - Head Exam Head Exam: NORMOCEPHALIC - Eye Exam Eye Exam: PERRL - ENT Exam ENT Exam: Mucous Membranes Dry - Neck Exam Neck Exam: absent: Lymphadenopathy - Respiratory Exam Respiratory Exam: Decreased Breath Sounds - Cardiovascular Exam Cardiovascular Exam: REGULAR RHYTHM - GI/Abdominal Exam GI & Abdominal Exam: Distended - Rectal Exam Rectal Exam: Deferred - Exam Exam: NORMAL INSPECTION - Extremities Exam Extremities Exam: absent: Pedal Edema - Back Exam Back Exam: absent: CVA tenderness (L), CVA tenderness (R) - Neurological Exam Neurological Exam: Alert, Awake - Psychiatric Exam Psychiatric exam: Normal Mood Assessment and Plan (1) Anemia Status: Acute (2) Cellulitis of buttock, right Status: Acute (3) Fever Status: Acute (4) Leukocytosis Status: Acute (5) Postoperative anemia due to acute blood loss Status: Acute
[2017-05-31] MEDS: ceFAZolin 2 GM in Sodium Chloride 0.9% 100 ML IVPB SCH (18:21)
[2017-06-01] MEDS: ceFAZolin 2 GM in Sodium Chloride 0.9% 100 ML IVPB SCH ×2 (01:29→10:04)
[2017-06-01] MEDS ORDERED: HYDROmorphone 0.5 mg/0.5 ml ISec IVP PRN (02:15)
[2017-06-01 07:17] LABS: BASO % 0.7 % (0.0-2.0); EOS # 0.4 K/uL (0.0-0.7); EOS % 5.6 % (0.0-4.0); HEMATOCRIT 24.2 % (34.0-47.0); LYMPH # 2.1 K/uL (1.0-4.3); LYMPH % 30.2 % (20.0-40.0); MEAN CELL VOLUME 86.5 fl (81.0-99.0); MEAN CORPUSCULAR HEMOGLOBIN 29.8 pg (27.0-31.0); MEAN CORPUSCULAR HGB CONC 34.5 g/dL (33.0-37.0); MEAN PLATELET VOLUME 6.7 fl (7.2-11.7); MONO % 14.1 % (0.0-10.0); NEUT # 3.4 K/uL (1.8-7.0); NEUT % 49.4 % (50.0-75.0); NRBC % 0.3 % (0.0-0.0); RED CELL DISTRIBUTION WIDTH 14.5 % (11.5-14.5); WHITE BLOOD COUNT 6.8 K/uL (4.8-10.8)
[2017-06-01 07:26] LABS: BLOOD UREA NITROGEN 4 mg/dl (7-17); CALCIUM 8.6 mg/dL (8.4-10.2); CARBON DIOXIDE 31 mmol/L (22-30); CHLORIDE 102 mmol/L (98-107); GFR AFRICAN-AMERICAN > 60; GLUCOSE,RANDOM 90 mg/dL (65-105); SODIUM 139 mmol/l (132-148)
--- NOTE | 2017-06-01 07:45 | CP.PCM.DIS ---
Provider - Provider Date of Admission: 05/25/17 09:13 Attending physician: Julio Call MD Primary care physician: None Consults: ID consult plastic surgery consult cardiology consult Time Spent in preparation of Discharge (in minutes): 20 Hospital Course - Lab Results Lab Results: Micro Results 05/28/17 23:16 Abscess - Buttocks Gram Stain - Final 05/28/17 23:16 Abscess - Buttocks Anaerobic Culture - Final No growth. 05/28/17 23:16 Abscess - Buttocks Wound Culture - Preliminary No growth. 05/28/17 23:16 Other: Please Indicate Mycobacterial Culture - Preliminary 05/28/17 23:16 Other: Please Indicate Mycobacterial Culture - Preliminary Most Recent Lab Values WBC 6.8 K/uL (4.8-10.8) 06/01/17 06:00 RBC 2.80 Mil/uL (3.80-5.20) L 06/01/17 06:00 Hgb 8.3 g/dL (12.0-16.0) L 06/01/17 06:00 Hct 24.2 % (34.0-47.0) L 06/01/17 06:00 MCV 86.5 fl (81.0-99.0) 06/01/17 06:00 MCH 29.8 pg (27.0-31.0) 06/01/17 06:00 MCHC 34.5 g/dL (33.0-37.0) 06/01/17 06:00 RDW 14.5 % (11.5-14.5) 06/01/17 06:00 Plt Count 515 K/uL (130-400) H D 06/01/17 06:00 MPV 6.7 fl (7.2-11.7) L 06/01/17 06:00 Neut % (Auto) 49.4 % (50.0-75.0) L 06/01/17 06:00 Lymph % (Auto) 30.2 % (20.0-40.0) 06/01/17 06:00 [place] % (Auto) 14.1 % (0.0-10.0) H 06/01/17 06:00 Eos % (Auto) 5.6 % (0.0-4.0) H 06/01/17 06:00 Baso % (Auto) 0.7 % (0.0-2.0) 06/01/17 06:00 Neut # 3.4 K/uL (1.8-7.0) 06/01/17 06:00 Lymph # 2.1 K/uL (1.0-4.3) 06/01/17 06:00 [place] # 1.0 K/uL (0.0-0.8) H 06/01/17 06:00 Eos # 0.4 K/uL (0.0-0.7) 06/01/17 06:00 Baso # 0.0 K/uL (0.0-0.2) 06/01/17 06:00 Neutrophils % (Manual) 72 % (42-75) 05/28/17 06:00 Band Neutrophils % 2 % (0-2) 05/28/17 06:00 Lymphocytes % (Manual) 11 % (20-50) L 05/28/17 06:00 Reactive Lymphs % 1 % (0-0) H 05/24/17 22:20 Monocytes % (Manual) 14 % (0-10) H 05/28/17 06:00 Eosinophils % (Manual) 1 % (0-7) 05/28/17 06:00 Toxic Granulation Present 05/28/17 06:00 Platelet Estimate Normal (NORMAL) 05/28/17 06:00 Hypochromasia (manual) Moderate 05/28/17 06:00 Poikilocytosis (manual Slight 05/24/17 22:20 Anisocytosis (manual) Slight 05/24/17 22:20 Tear Drop Cells Slight 05/24/17 22:20 Ovalocytes Slight 05/28/17 06:00 Schistocytes Slight 05/28/17 06:00 Retic Count 5.3 % (0.5-1.5) H 05/25/17 05:00 Sodium 139 mmol/l (132-148) 06/01/17 06:00 Potassium 4.0 MMOL/L (3.6-5.0) 06/01/17 06:00 Chloride 102 mmol/L (98-107) 06/01/17 06:00 Carbon Dioxide 31 mmol/L (22-30) H 06/01/17 06:00 Anion Gap 10 (10-20) 06/01/17 06:00 BUN 4 mg/dl (7-17) L 06/01/17 06:00 Creatinine 0.6 mg/dL (0.7-1.2) L 06/01/17 06:00 Est GFR ( Amer) > 60 06/01/17 06:00 Est GFR (Non-Af Amer) > 60 06/01/17 06:00 Random Glucose 90 mg/dL (65-105) 06/01/17 06:00 Lactic Acid 1.8 MMOL/L (0.7-2.1) 05/27/17 15:15 Calcium 8.6 mg/dL (8.4-10.2) 06/01/17 06:00 Iron 12 ug/dL (37-170) L 05/25/17 05:00 TIBC 238 ug/dL (250-450) L 05/25/17 05:00 % Saturation 5 % (20-55) L 05/25/17 05:00 Ferritin 121.0 ng/mL 05/25/17 05:00 Total Bilirubin 0.5 mg/dl (0.2-1.3) 05/28/17 06:00 AST 22 U/L (14-36) 05/28/17 06:00 ALT 37 U/L (9-52) 05/28/17 06:00 Alkaline Phosphatase 108 U/L (38-126) 05/28/17 06:00 Total Protein 5.9 G/DL (6.3-8.2) L 05/28/17 06:00 Albumin 2.8 g/dL (3.5-5.0) L 05/28/17 06:00 Globulin 3.2 gm/dL (2.2-3.9) 05/28/17 06:00 Albumin/Globulin Ratio 0.9 (1.0-2.1) L 05/28/17 06:00 Vitamin B12 495 pg/mL (239-931) 05/25/17 05:00 RBC Folate 773 ng/mL RBC (>280) 05/25/17 05:00 Procalcitonin 0.25 NG/ML (0.19-0.49) 05/27/17 15:15 TSH 3rd Generation 3.05 mIU/ML (0.46-4.68) 05/25/17 05:00 Urine Color Straw (YELLOW) 05/24/17 23:24 Urine Clarity Clear (Clear) 05/24/17 23:24 Urine pH 7.0 (5.0-8.0) 05/24/17 23:24 Ur Specific [place] 1.006 (1.003-1.030) 05/24/17 23:24 Urine Protein Negative mg/dL (NEGATIVE) 05/24/17 23:24 Urine Glucose (UA) Neg mg/dL (Normal) 05/24/17 23:24 Urine Ketones Negative mg/dL (NEGATIVE) 05/24/17 23:24 Urine Blood Negative (NEGATIVE) 05/24/17 23:24 Urine Nitrate Negative (NEGATIVE) 05/24/17 23:24 Urine Bilirubin Negative (NEGATIVE) 05/24/17 23:24 Urine Urobilinogen 0.2-1.0 mg/dL (0.2-1.0) 05/24/17 23:24 Ur Leukocyte Esterase Neg Justin/uL (Negative) 05/24/17 23:24 Urine RBC (Auto) 1 /hpf (0-3) 05/24/17 23:24 Urine Microscopic WBC < 1 /hpf (0-5) 05/24/17 23:24 Ur Squamous Epith Cells 1 /hpf (0-5) 05/24/17 23:24 Urine Bacteria Rare (<OCC) 05/24/17 23:24 Vancomycin Trough < 5.0 ug/mL (5.0-10.0) L 06/01/17 06:00 HIV 1&2 Antibody Screen Negative (NEGATIVE) 05/26/17 05:00 Malaria Smear None seen (NONE SEEN) 05/27/17 15:15 Blood Type O NEGATIVE 05/25/17 09:25 Blood Type Confirm O NEGATIVE 05/25/17 00:14 Antibody Screen Negative 05/25/17 09:25 Crossmatch See Detail 05/25/17 09:25 Reaction Clerical Check No discrepancy (NO DISCREPA) 05/25/17 17:00 Pre-Trans Blood Type O NEGATIVE 05/25/17 17:00 Pre-Trans Bld Appearanc No hemolysis (NO HEMOLYSI) 05/25/17 17:00 Pre-Trans DIONY Negative (NEGATIVE) 05/25/17 17:00 Post-Trans Blood Type O NEGATIVE 05/25/17 17:00 Post-Trans Spec Appear No hemolysis (NO HEMOLYSI) 05/25/17 17:00 Post-Trans DIONY Negative (NEGATIVE) 05/25/17 17:00 BBK History Checked Patient has bt 05/25/17 09:25 - Hospital Course Hospital Course: 21 y/o lady with recent Liposuction and Buttock Fat Transfer procedure and Breast augmentation done in the [place] 10 days ago , came bec of fever and generalized malaise. Patient was admitted with diagnosis of sepsis secondary to cellulitis and started on IV antibiotics. ID was consulted . CT showed no definite abscess. Patient remained febrile and tachycardic Plastic surgery was consulted and patient taken to OR that showed large loculated abscess and fat necrosis . Patient was treated with IV antibiotics Vanco ansd Zosyn initially that were changed to Meropenem and vanco and later de escalated to Cefazolin and Vanco. Cultures all with no growth. Patient clinically improved . discussed with ID . May discharge patient on vanco and Zosyn IV for 1 more week. patient will need to have wound care at home and follow up with Dr. [facility] at [facility] office in 1 week Will discharge patient home. 1. Sepsis ( POA) sec to Cellulitis and abscess of right buttock, post surgical infection s/p Incision and drainage of abscess and placement of packing Pt had a hx of Liposuction and Fat transfer to Buttocks done in Pt came in febrile, tachycardic, WBC CT =19k ID consulted Dr Zambrano CT of pelvis showed cellulitis, no definite abscess started on IV Zosyn,Vanco , later Meropenem 05/[address] Rodriguez consulted since patient continued to be febrile despite broad spectrum IV antibiotics Underwent s/p I&D 05/[address] Rodriguez that showed large right gluteal abscess , loculated and fat necrosis Wound cultures sent- negative Gram Stain and AFB Stain Continue wound care and packing changes daily as per surgery Antibibiotic descalated . will continue Zosyn 4.5 g IV Q12 and vanco 1 G IV Q12 for for 1 more week had PICC line placement today Will discharge patient home Follow up with Dr. Rodriguez in 1 week Pain management PRN 2. Postoperative anemia due to acute blood loss Acute transfused 1 unit PRBC received IV venofer x 4 days Started ferrous sulfate 3. Tachycardia - resolved Most likely related to pain and fever HR better controlled CTA showed no PE or dissection Cardio cleared patient for surgery. Avoid Beta blockers received IVF, pain management 4. DVT prophylaxis Acute on Lovenox while in patient Discharge Exam - Head Exam Head Exam: ATRAUMATIC, NORMAL INSPECTION, NORMOCEPHALIC - Eye Exam Eye Exam: EOMI, Normal appearance, PERRL Pupil Exam: NORMAL ACCOMODATION - ENT Exam ENT Exam: Mucous Membranes Moist, Normal Exam - Neck Exam Neck exam: Full Rom, Normal Inspection - Respiratory Exam Respiratory Exam: Clear to PA & Lateral, NORMAL BREATHING PATTERN. absent: Rales, Rhonchi, Wheezes - Cardiovascular Exam Cardiovascular Exam: REGULAR RHYTHM, RRR, +S1, +S2. absent: JVD - GI/Abdominal Exam GI & Abdominal Exam: Normal Bowel Sounds, Soft. absent: Distended, Guarding, Rebound, Tenderness - Rectal Exam Rectal Exam: Deferred - Exam Additional comments: right buttock hard and tender to touch small wound to right buttock closer to midline with dressing - Extremities Exam Extremities exam: normal capillary refill, normal inspection, pedal pulses present - Back Exam Back exam: NORMAL INSPECTION - Neurological Exam Neurological exam: Alert, CN II-XII Intact, Oriented x3, Reflexes Normal - Psychiatric Exam Psychiatric exam: Flat Affect - Skin Skin Exam: Dry, Normal Color, Warm Discharge Plan - Discharge Medications Prescriptions: Docusate [Colace] 100 mg PO BID #60 cap Famotidine [Pepcid] 20 mg PO BID #60 tab Ferrous Sulfate [Feosol] 325 mg PO BID #60 tab oxyCODONE/Acetaminophen [Percocet 5/325 mg Tab] 1 ea PO Q4 #30 tab Piperacill/Tazo 4.5gm in NS [Zosyn 4.5 gm in NS 100ml] 4.5 gm IVPB Q12 #14 bag Vancomycin 1 GM [Vancomycin 1GM in Normal Saline Addvantage] 1 gm IVPB Q12 #14 bag - Follow Up Plan Condition: STABLE Disposition: HOME/ ROUTINE Patient education suggested?: Yes Instructions: Cellulitis (DC), Peripherally Inserted Central Catheters and Midline Catheters (DC), Acute Wound Care (DC), Abscess (GEN) Additional Instructions: amedysis visiting nurse [phone] Referrals: Diane Rodriguez [Medical Doctor] -
--- NOTE | 2017-06-01 08:16 | CP.PCM.PN ---
Subjective - Date & Time of Evaluation Date of Evaluation: 06/01/17 Time of Evaluation: 07:00 - Subjective Subjective: PLASTIC SURGERY PROGRESS NOTE FOR DR. VARGAS Patient seen and examined at bedside. She reports that the pain in her right buttock is improved. She is tolerating her diet, denies nausea or vomiting. We changed the dressing this AM. Objective - Vital Signs/Intake and Output Vital Signs (last 24 hours): Temp Pulse Resp BP Pulse Ox 98 F 59 L 20 115/72 98 06/01/17 01:00 06/01/17 01:00 06/01/17 01:00 06/01/17 01:00 06/01/17 01:00 - Medications Medications: Current Medications Acetaminophen (Tylenol 325mg Tab) 650 mg PO Q6 PRN PRN Reason: Fever >100.4 F Last Admin: 05/29/17 22:42 Dose: 650 mg Acetaminophen (Tylenol 325mg Tab) 650 mg PO Q6 PRN PRN Reason: Pain, Mild (1-3) Last Admin: 05/31/17 21:29 Dose: 650 mg Benzocaine/Menthol (Cepacol Sore Throat) 1 miguel PO Q3 PRN PRN Reason: Sore Throat Last Admin: 05/30/17 10:34 Dose: 1 miguel Docusate Sodium (Colace) 100 mg PO BID [facility] Last Admin: 05/31/17 19:49 Dose: 100 mg Enoxaparin Sodium (Lovenox) 40 mg SC DAILY [facility] PRN Reason: Protocol Last Admin: 05/31/17 08:39 Dose: 40 mg Famotidine (Pepcid) 20 mg PO BID [facility] Last Admin: 05/31/17 17:24 Dose: 20 mg Ferrous Sulfate (Feosol) 325 mg PO BID [facility] Last Admin: 05/31/17 17:25 Dose: 325 mg Hydromorphone HCl (Dilaudid) 0.5 mg IVP Q4 PRN PRN Reason: Pain, moderate (4-7) Last Admin: 05/31/17 15:48 Dose: 0.5 mg Hydromorphone HCl (Dilaudid) 1 mg IVP Q4 PRN PRN Reason: Pain, severe (8-10) Last Admin: 06/01/17 06:40 Dose: 1 mg Vancomycin HCl 1 gm/ Sodium (Chloride) 250 mls @ 166.667 mls/hr IVPB Q12H [facility] Last Admin: 06/01/17 01:17 Dose: Not Given Cefazolin Sodium 2 gm/ Sodium (Chloride) 100 mls @ 100 mls/hr IVPB Q8 [facility] Last Admin: 06/01/17 01:29 Dose: 100 mls/hr Ibuprofen (Motrin Tab) 600 mg PO Q6 PRN PRN Reason: Headache Last Admin: 05/30/17 16:52 Dose: 600 mg Lactulose (Enulose) 20 gm PO DAILY PRN PRN Reason: Constipation Last Admin: 05/30/17 16:47 Dose: 20 gm Ondansetron HCl (Zofran Inj) 4 mg IVP Q6 PRN PRN Reason: Nausea/Vomiting Last Admin: 05/31/17 05:13 Dose: 4 mg Zolpidem Tartrate (Ambien) 5 mg PO HS PRN PRN Reason: Sleep Last Admin: 05/26/17 21:00 Dose: 5 mg - Labs Labs: 06/01/17 06:00 06/01/17 06:00 Assessment and Plan - Assessment and Plan (Free Text) Assessment: 21yo F with no significant PMHx who presented fever, chills, malaise, and pain in her right gluteal region after liposuction and [place] butt lift in the [place] on 05/14/17 and was found to be septic with possible right gluteal region cellulitis and abscess, now POD#4 from I&D with iodoaform packing - Afebrile, VSS - Leukocytosis resolved - Wound cx= no growth @ prelim read; AFB negative - Changed dressing - Continue antibiotics per ID - Need to set up VNS for every other day packing change at home - Once VNS set up, patient clear for discharge from surgical standpoint - Discussed plan with Dr. Logan Ojeda PGY-3
[2017-06-01] MEDS: Enoxaparin 40 mg Syringe SC SCH (09:22)
--- NOTE | 2017-06-01 13:15 | CP.PCM.PN ---
Subjective - Date & Time of Evaluation Date of Evaluation: 06/01/17 Time of Evaluation: 07:00 - Subjective Subjective: cultures so far neg Objective - Vital Signs/Intake and Output Vital Signs (last 24 hours): Temp Pulse Resp BP Pulse Ox 98.3 F 65 20 123/77 99 06/01/17 08:14 06/01/17 10:42 06/01/17 08:14 06/01/17 10:42 06/01/17 08:14 Intake and Output: 06/01/17 06/01/17 06:59 18:59 Intake Total 100 Balance 100 - Medications Medications: Current Medications Acetaminophen (Tylenol 325mg Tab) 650 mg PO Q6 PRN PRN Reason: Fever >100.4 F Last Admin: 05/29/17 22:42 Dose: 650 mg Acetaminophen (Tylenol 325mg Tab) 650 mg PO Q6 PRN PRN Reason: Pain, Mild (1-3) Last Admin: 05/31/17 21:29 Dose: 650 mg Benzocaine/Menthol (Cepacol Sore Throat) 1 miguel PO Q3 PRN PRN Reason: Sore Throat Last Admin: 05/30/17 10:34 Dose: 1 miguel Docusate Sodium (Colace) 100 mg PO BID [facility] Last Admin: 06/01/17 10:05 Dose: 100 mg Enoxaparin Sodium (Lovenox) 40 mg SC DAILY [facility] PRN Reason: Protocol Last Admin: 06/01/17 09:22 Dose: Not Given Famotidine (Pepcid) 20 mg PO BID [facility] Last Admin: 06/01/17 10:05 Dose: 20 mg Ferrous Sulfate (Feosol) 325 mg PO BID [facility] Last Admin: 06/01/17 10:05 Dose: 325 mg Hydromorphone HCl (Dilaudid) 0.5 mg IVP Q4 PRN PRN Reason: Pain, moderate (4-7) Last Admin: 05/31/17 15:48 Dose: 0.5 mg Hydromorphone HCl (Dilaudid) 1 mg IVP Q4 PRN PRN Reason: Pain, severe (8-10) Last Admin: 06/01/17 10:46 Dose: 1 mg Vancomycin HCl 1 gm/ Sodium (Chloride) 250 mls @ 166.667 mls/hr IVPB Q12H [facility] Last Admin: 06/01/17 12:28 Dose: 166.667 mls/hr Cefazolin Sodium 2 gm/ Sodium (Chloride) 100 mls @ 100 mls/hr IVPB Q8 [facility] Last Admin: 06/01/17 10:04 Dose: 100 mls/hr Ibuprofen (Motrin Tab) 600 mg PO Q6 PRN PRN Reason: Headache Last Admin: 05/30/17 16:52 Dose: 600 mg Lactulose (Enulose) 20 gm PO DAILY PRN PRN Reason: Constipation Last Admin: 05/30/17 16:47 Dose: 20 gm Ondansetron HCl (Zofran Inj) 4 mg IVP Q6 PRN PRN Reason: Nausea/Vomiting Last Admin: 05/31/17 05:13 Dose: 4 mg Zolpidem Tartrate (Ambien) 5 mg PO HS PRN PRN Reason: Sleep Last Admin: 05/26/17 21:00 Dose: 5 mg - Labs Labs: 06/01/17 06:00 06/01/17 06:00 Assessment and Plan (1) Anemia Status: Acute (2) Cellulitis of buttock, right Status: Acute (3) Fever Status: Acute (4) Leukocytosis Status: Acute (5) Postoperative anemia due to acute blood loss Status: Acute
[2017-06-01] MEDS ORDERED: Lidocaine 1% Inj (20ml) ONE (14:24)
--- NOTE | 2017-06-01 14:35 | PCM.SURG1 ---
Surgeon's Initial Post Op Note - Surgeon's Notes Surgeon: Pankaj Tellez MD Bar Assistant: None Type of Anesthesia: Local Pre-Operative Diagnosis: Poor venous access Operative Findings: Patent right basilic vein. Post-Operative Diagnosis: Poor venous access Operation Performed: Single lumen picc placement, 39 cm, via the right baslic vein. Tip in SVC. Specimen/Specimens Removed: none Estimated Blood Loss: EBL {In ML}: 2 Blood Products Given: N/A Drains Used: No Drains Post-Op Condition: Fair Date of Surgery/Procedure: 06/01/17 Time of Surgery/Procedure: 14:30
[2017-06-01 16:00] VITALS: BP 122/76; PULSE 56; RESP 16; TEMP 98.2; O2SAT 100
--- NOTE | 2017-06-04 02:22 | CON ---
DATE: 05/27/2017 HOSPITAL EMERGENCY CONSULTATION HISTORY OF PRESENT ILLNESS: This is a healthy 21-year-old female who presented to the [facility] Emergency Room on 05/24/2017, complaining of right buttock pain, redness, and fevers. The patient had an elevated white count to 19 on admission. She has been on IV antibiotics per the infectious disease team. I was consulted today for possible abscess and cellulitis. The patient had a CAT scan a couple of days ago, which did not show any abscess of her buttock; however, she remained tachycardic with a heart rate to 130. Her white count was 19 and she was having fevers. Thus, I was called emergently to see the patient. When I came in to see the patient, on history the patient had a [place] butt lift or fat transfer done under [facility] about 8 days prior to admission. After being back in [facility] for 2 days, she started to feel ill. Thus, she presented to the emergency room. The patient had liposuction of her arms, her back, her flank, and her abdomen, and fat transfer to bilateral buttocks. It was unknown how much of fat was transferred. The patient did not receive any DVT prophylaxis . The patient did fly from the [facility] to [place] approximately eight days after surgery. The patient was having chest pain and shortness of breath as well as fevers and tachycardia and pain. PHYSICAL EXAMINATION: On the right medial buttock, there was some erythema and warmth and there was some question of fluctuance over there. The rest of her exam was within normal limits. She was tachycardic. I recommended emergent CAT scan of the chest, abdomen, and pelvis to rule out pulmonary embolism as well as to make sure there was no bowel perforation as well as to see if there is any abscess in her pelvis or her buttocks. The patient was on IV antibiotics per the infectious disease team. Her white count did come down to 14, but she was still having fevers and pain. So that was what I recommended and I explained to the patient that if she has an abscess, it needs to be taken to the operating room and drained emergently. Diane Ford MD
--- NOTE | 2017-06-04 05:01 | OP ---
PROCEDURE DATE: 05/28/2017 PREOPERATIVE DIAGNOSES: 1. Right buttock abscess. 2. Right buttock cellulitis. POSTOPERATIVE DIAGNOSES: 1. Right buttock abscess. 2. Right buttock cellulitis. PROCEDURES PERFORMED: 1. Incision and drainage complicated of right buttock abscess. 2. Exploration of right buttock. 3. Debridement of necrotic tissue of the right buttock. SURGEON: Diane Ford MD HOUSEHOLD ASSISTANT SURGEON: . TYPE OF ANESTHESIA: General endotracheal tube anesthesia. ANESTHESIA ADMINISTERED BY: Jason Weston MD INDICATIONS FOR PROCEDURE: Please refer to my separately dictated consultation for history and physical. Since my consultation yesterday, the patient had a CAT scan, which did not show any pulmonary embolism. She also had an echocardiogram, which did not show any pulmonary embolism or right heart strain and her CAT scan was negative for pulmonary embolism; however, the CAT scan was positive for likely abscess and large phlegmon of the right buttock correlating to the physical exam area of redness and warmth. The patient was taken to the operating room emergently for exploration, incision and drainage, and debridement. I explained to the patient I will make a small incision, I will try to remove as much as the infection as possible. I wonder that she is at risk for the some of the fact that was she is likely can have asymmetry. She may have scarring, firmness, fat necrosis, bleeding, hematoma, infection, seroma, and contour irregularities, poor scarring and keloid scarring were potential risks. The patient understood this and wished to proceed. DESCRIPTION OF PROCEDURE: The patient was taken to the operating room, placed under general anesthesia, perioperative antibiotics were given and confirmed. SCDs were placed in bilateral lower extremities. She was placed in the prone position after intubation with appropriate position and padding. The buttocks were prepped and draped in the usual clean and sterile manner. The are of the cellulitis and induration was marked with a surgical marker in the area of most fluctuance and the medial aspect of the right buttock, a 1.5 cm incision was made with #10 scalpel. We dissected down, a 100 mL of pus was expressed. The wound was explored with the clamp. All the loculations were broken up, some fat did come out, but mostly pus. Multiple wound cultures especially to rule out AFB and Mycobacterium were sent. Some of the tissue was debrided with scissor technique that was devitalized and necrotic. After fully exploring the wound debriding and draining the abscess, we irrigated antibiotic irrigation. After doing this, we placed 0.5 inch plain packing within the wound and then dry sterile dressing. The patient was flipped over, extubated, and transferred to recovery room in stable condition. FINDINGS: As above. DRAINS: Packing right buttock. ESTIMATED BLOOD LOSS: 20 mL. COMPLICATIONS: None. CONDITION: Stable. Diane Ford MD
--- NOTE | 2017-06-11 11:15 | VASCULAR ---
PROCEDURE: Date of procedure: 06/01/2017 Procedure: 1. Placement of a right arm PICC with ultrasound and fluoroscopic guidance, CPT 97054 2. PICC tip confirmation with spot radiograph and is in the superior vena cava Medications: 3cc 1 percent lidocaine Total Fluoro time: 9.8 seconds Radiation: 1.45 MGy EBL: 2 cc HISTORY: Infection requiring long-term IV antibiotics TECHNIQUE: Following informed consent and procedure time-out, the patient was placed supine on the interventional table and the right arm prepped and draped in the usual sterile fashion. Ultrasound showed a patent and compressible right basilic vein. After the skin was anesthetized with lidocaine, the basilic vein was accessed with micro micropuncture technique using ultrasound guidance. A guidewire was then advanced under fluoroscopic guidance into the superior vena cava. An image documenting ultrasound guidance for vascular access was permanently saved. The length of the single-lumen 4 [place] PICC was trimmed to 39 centimeters and advanced through a peel-away sheath. The PICC was position with tip of PICC confirm a spot radiograph the superior vena cava. The PICC was secured to the patient's skin. The PICC was flushed. A biopatch and sterile dressing was applied. IMPRESSION: Placement of a single-lumen 4 [place] PICC trimmed to 39 centimeters via right basilic vein. The tip of the PICC is confirmed with spot radiograph and is in the superior vena cava.
== END 2017-06-01 17:47 | disposition home health service (06) | DRG 856 ==
LOC: H.ER 20:44 → H.ERHOLD 23:47 → H.TEL 05-25 01:58 → OBSVTOIN 05-25 09:13 → H.TEL 05-26 21:50 → H.MEDSURG1 05-31 17:15
PROVIDERS: ADMIT Internal Medicine; ATTEND Internal Medicine
PROC: 30233N1 Transfusion of Nonautologous Red Blood Cells into Peripheral Vein, Percutaneous Approach (ICD-10-PCS; 2017-05-25)
PROC: 0JB90ZZ Excision of Buttock Subcutaneous Tissue and Fascia, Open Approach (ICD-10-PCS; 2017-05-28)
PROC: 0J990ZZ Drainage of Buttock Subcutaneous Tissue and Fascia, Open Approach (ICD-10-PCS; principal; 2017-05-28 20:30)
PROC: 02HV33Z Insertion of Infusion Device into Superior Vena Cava, Percutaneous Approach (ICD-10-PCS; 2017-06-01)
PROC: B518ZZA Fluoroscopy of Superior Vena Cava, Guidance (ICD-10-PCS; 2017-06-01)
PROC: 3E04329 Introduction of Other Anti-infective into Central Vein, Percutaneous Approach (ICD-10-PCS; 2017-06-01)
DX: T81.4XXA Infection following a procedure, initial encounter (principal); A41.9 Sepsis, unspecified organism; L02.31 Cutaneous abscess of buttock; L03.317 Cellulitis of buttock; L03.115 Cellulitis of right lower limb; D62 Acute posthemorrhagic anemia; E86.0 Dehydration; R00.0 Tachycardia, unspecified; K59.00 Constipation, unspecified